=== PATIENT | female | born 1940 | race Caucasian/White ===

== ENCOUNTER 2016-08-27 | Outpatient (CLI) | payer MEDICARE, OTHER | END 2016-08-27 23:59 | disposition short-term general hospital (02) | CPT/HCPCS: A0425; A0427 ==

== ENCOUNTER 2020-11-05 16:34 | Outpatient (CLI) | payer MEDICARE, OTHER | END 2020-11-05 16:35 | disposition critical access hospital (66) | LOC: EMS 16:34 | PROVIDERS: ATTEND Emergency Medicine | DX: R06.02 Shortness of breath (principal) | CPT/HCPCS: A0425; A0429 ==

== ENCOUNTER 2020-11-05 17:11 | Inpatient (IN) | payer MEDICARE, OTHER ==
[2020-11-05] MEDS ORDERED: IPRATROPIUM 0.2 MG/ML NEB INH STA (17:15)
[2020-11-05] MEDS ORDERED: ALBUTEROL NEB 2.5 MG/3 ML INH STA (17:15)
[2020-11-05] MEDS ORDERED: methylPREDNISolone SUCCINATE 125 MG/2 ML VIAL IVP STA (17:15)
--- NOTE | 2020-11-05 17:24 | ED Physician Documentation ---
History of Present Illness - Stated complaint Stated Complaint: SOA - Chief complaint Chief Complaint: Resp - Additonal information Additional information: 79-year-old female presents the emergency department with chief complaint of shortness of breath that she noted this morning upon wakening. She does have a history of nonoxygen dependent COPD. She had used her albuterol MDI at home with little relief thus she called EMS. On presentation for EMS she had saturations of 90 to 94% and was placed on 6 L nasal cannula which increased her oxygen level to 96%. Here on room air her O2 level was 90%. Her oxygen was adjusted to 2 L with a saturation of 95%. Patient is quite tachypneic and labored unable to speak in full sentences. Primary auscultation reveals very poor air flow globally. pt is a former smoker, quit 20 years ago pmh is most significant for htn, COPD and hx of Ao valve replacement (on coumadin) meds: coumadin, lipitor, losartan, metoprolol, advair, albuterol. kumar, Review of Systems Constitutional: denies: Fever, Chills Eyes: reports: Reviewed and negative Ears: reports: Reviewed and negative Nose: reports: Reviewed and negative Throat: reports: Reviewed and negative Cardiac: reports: Pedal edema. denies: Chest pain / pressure, Palpitations, Calf pain Respiratory: reports: Dyspnea, Cough, Wheezing GI: denies: Abdominal Pain, Abdominal Swelling, Nausea, Vomiting : denies: Dysuria, Frequency, Hesitancy Skin: denies: Rash, Lesions Musculoskeletal: denies: Neck pain, Back pain Neurologic: reports: Reviewed and negative Psychiatric: reports: Reviewed and negative PD PAST MEDICAL HISTORY - Present Medications Home Medications: Ambulatory Orders Medication Instructions Recorded Confirmed Albuterol Sulfate [Proair Hfa 1 - 2 puffs INH Q4H PRN 11/05/20 11/05/20 Inhaler] Fluticasone/Salmeterol [Advair Hfa 12 gm IH 11/05/20 230-21 Mcg Inhaler] Latanoprost/Pf [Latanoprost 0.005% 11/05/20 Eye Drop] Metoprolol Tartrate [Lopressor] 11/05/20 Tiotropium Br/Olodaterol HCl 4 gm IH 11/05/20 [Stiolto Respimat Inhal [place]] Warfarin [Coumadin] 5 mg PO 11/05/20 - Allergies Allergies/Adverse Reactions: Allergies Allergy/AdvReac Type Severity Reaction Status Date / Time Penicillins Allergy Hives Verified 11/05/20 17:43 PD ED PE EXPANDED - General General: Alert, In distress (difficulty breathing) - Neck Neck: Supple w/out meningeal sx - Cardiac Cardiac: Tachy, Murmur Present, Radial strong equal, Pedal strong equal, Cap refill < 2 sec - Respiratory Respiratory: Distress, Labored, Other (This decreased breath sounds globally with poor air movement. A few coarse crackles throughout with mild wheeze) - Abdomen Abdomen: Normal Bowel sounds. No: Tender to palpation - Neuro Neuro: Alert and Oriented X 3, CNII-XII intact - GCS Eye Opening: Spontaneous Motor: Obeys Commands Verbal: Oriented Total: 15 Results - Vitals Vitals: Vital Signs - 24 hr 11/05/20 11/05/20 11/05/20 17:15 17:28 17:45 Temperature 36.8 C 37 C Heart Rate 121 H 121 H 125 H Respiratory 22 22 24 Rate Blood Pressure 146/115 H 188/131 H O2 Saturation 97 98 11/05/20 18:15 Temperature Heart Rate 121 H Respiratory 17 Rate Blood Pressure 165/109 H O2 Saturation 99 Oxygen O2 Source Non-rebreather mask Oxygen Flow Rate 2 - EKG (time done) 1724 Rate: Rate (enter#) (121) Rhythm: Sinus tachycardia Intervals: RBBB Ischemia: Non specific changes Compare to prior EKG: Old EKG unavailable - Labs Labs: Laboratory Tests 11/05/20 11/05/20 11/05/20 17:29 17:29 17:29 WBC 11.4 H RBC 4.69 Hgb 14.7 Hct 45.8 MCV 97.7 MCH 31.3 H MCHC 32.1 RDW 14.1 Plt Count 233 MPV 10.0 Neut # (Auto) 8.1 H Lymph # (Auto) 1.9 Winn # (Auto) 1.3 H Eos # (Auto) 0.1 Baso # (Auto) 0.1 Absolute Nucleated RBC 0.00 Nucleated RBC % 0.0 PT INR Sodium 136 Potassium 4.9 Chloride 101 Carbon Dioxide 23 Anion Gap 12.0 BUN 20 Creatinine 1.0 Estimated GFR (MDRD) 53 L Glucose 139 H Calcium 9.9 Total Bilirubin 1.4 H AST 41 ALT 27 Alkaline Phosphatase 97 Troponin I High Sens 23.4 H* B-Natriuretic Peptide Total Protein 7.8 Albumin 4.3 Globulin 3.5 Albumin/Globulin Ratio 1.2 Lipase 34 Nasal Adenovirus (PCR) Nasal B. parapertussis DNA (PCR) Nasal Coronavir 229E PCR Nasal Coronavir HKU1 PCR Nasal Coronavir NL63 PCR Nasal Coronavir OC43 PCR Nasal Enterovir/Rhinovir PCR Nasal Influenza B PCR Nasal Influenza A PCR Nasal Parainfluen 1 PCR Nasal Parainfluen 2 PCR Nasal Parainfluen 3 PCR Nasal Parainfluen 4 PCR Nasal RSV (PCR) Nasal B.pertussis DNA PCR Nasal C.pneumoniae (PCR) [place] Human Metapneumo PCR Nasal M.pneumoniae (PCR) Nasal SARS-CoV-2 (PCR) 11/05/20 11/05/20 11/05/20 17:29 17:29 18:06 WBC RBC Hgb Hct MCV MCH MCHC RDW Plt Count MPV Neut # (Auto) Lymph # (Auto) Winn # (Auto) Eos # (Auto) Baso # (Auto) Absolute Nucleated RBC Nucleated RBC % PT 44.2 H INR 4.4 H Sodium Potassium Chloride Carbon Dioxide Anion Gap BUN Creatinine Estimated GFR (MDRD) Glucose Calcium Total Bilirubin AST ALT Alkaline Phosphatase Troponin I High Sens B-Natriuretic Peptide 280 H Total Protein Albumin Globulin Albumin/Globulin Ratio Lipase Nasal Adenovirus (PCR) NOT DETECTED Nasal B. parapertussis DNA (PCR) NOT DETECTED Nasal Coronavir 229E PCR NOT DETECTED Nasal Coronavir HKU1 PCR NOT DETECTED Nasal Coronavir NL63 PCR NOT DETECTED Nasal Coronavir OC43 PCR NOT DETECTED Nasal Enterovir/Rhinovir PCR NOT DETECTED Nasal Influenza B PCR NOT DETECTED Nasal Influenza A PCR NOT DETECTED Nasal Parainfluen 1 PCR NOT DETECTED Nasal Parainfluen 2 PCR NOT DETECTED Nasal Parainfluen 3 PCR NOT DETECTED Nasal Parainfluen 4 PCR NOT DETECTED Nasal RSV (PCR) NOT DETECTED Nasal B.pertussis DNA PCR NOT DETECTED Nasal C.pneumoniae (PCR) NOT DETECTED [place] Human Metapneumo PCR NOT DETECTED Nasal M.pneumoniae (PCR) NOT DETECTED Nasal SARS-CoV-2 (PCR) NOT DETECTED - Rads (name of study) CXR Radiology: Final report received (Changes redemonstrated in the right lung base with linear right basilar opacities likely relating scarring. No definite acute consolidation.) PD MEDICAL DECISION MAKING - ED course Complexity details: reviewed old records, reviewed results, re-evaluated patient, considered differential, d/w patient ED course: 79-year-old female presents to the emergency department for evaluation of acute onset shortness of breath that began this a.m. She does have a history of COPD. She is a former smoker who quit 20 years ago. She did try her albuterol MDIs at home without relief. For EMS she was hypoxic on presentation with a sat of 90-94. Here on room air patient was noted to be hypoxic when taken off the oxygen therefore she was placed on 2 L nasal cannula. She arrived appearing labored tachypneic and tripoding. She was initially given 2 albuterol nebulizers followed by an Atrovent and then a Xopenex. Following these nebulizers she was moving air much more easily in all her lung watson though she remained labored. She was also given a dose of IV methylprednisolone as well as magnesium sulfate. Chest x-ray did not reveal any acute opacity. COVID-19 screening is negative. Pt was given azithromycin and ceftriaxone in the ED. She will be brought into the hospital for COPD exacerbation. Her VBG does not show significant acidemia or CO2 retention. She is tachycardic with a right bundle branch block on EKG. High-sensitivity troponin is in the low 20s. This likely represents a demand ischemia in the setting of tachycardia and respiratory failure. I have spoken with Dr. Ortega who is agreed to admit the patient for further treatment and evaluation of her acute COPD exacerbation. Departure - Departure Disposition: [facility] DC/Xfer Clinical Impression: COPD exacerbation Respiratory failure Qualifiers: Chronicity: acute Respiratory failure complication: hypoxia Qualified Code(s): J96.01 - Acute respiratory failure with hypoxia
[2020-11-05 17:37] LABS: BASOPHILS # (AUTO) 0.1 10^3/uL (0.0-0.1); BASOPHILS % (AUTO) 0.5 %; EOSINOPHILS # (AUTO) 0.1 10^3/uL (0.0-0.7); EOSINOPHILS % (AUTO) 0.8 %; HCT - HEMATOCRIT 45.8 % (37.0-47.0); HGB - HEMOGLOBIN 14.7 g/dL (12.0-16.0); LYMPHOCYTES # (AUTO) 1.9 10^3/uL (1.5-3.5); LYMPHOCYTES % (AUTO) 16.3 %; MEAN CORPUSCULAR HEMOGLOBIN 31.3 pg (27.0-31.0); MEAN CORPUSCULAR HGB CONC 32.1 g/dL (32.0-36.0); MEAN CORPUSCULAR VOLUME 97.7 fL (81.0-99.0); MONOCYTES # (AUTO) 1.3 10^3/uL (0.0-1.0); MONOCYTES % (AUTO) 11.1 %; NEUTROPHILS # (AUTO) 8.1 10^3/uL (1.5-6.6); PLT - PLATELET COUNT 233 10^3/uL (130-450); RED BLOOD COUNT 4.69 10^6/uL (4.20-5.40); RED CELL DISTRIBUTION WIDTH 14.1 % (12.0-15.0); WHITE BLOOD COUNT 11.4 x10^3/uL (4.8-10.8)
[2020-11-05 17:43] LABS: INR 4.4 (0.8-1.2); PT - PROTHROMBIN TIME 44.2 secs (9.9-12.6)
--- NOTE | 2020-11-05 17:53 | XRAY Report ---
PROCEDURE: Chest 1 View X-Ray INDICATIONS: Chest Pain TECHNIQUE: One view of the chest was acquired. COMPARISON: Chest CT 10/19/2009 FINDINGS: Surgical changes and devices: Post surgical changes are redemonstrated in the mediastinum. There is a lso postsurgical change in the right hemithorax consistent with prior right lower lobe lobectomy. Lungs and pleura: Linear opacities are demonstrated in the right lung base compatible scarring. Ther e is blunting of the costophrenic angle corresponding to pleural thickening seen on the prior CT. No definite acute consolidation. The lung apices are partially obscured by the patient's neck soft tissu es. No definite pneumothorax. Mediastinum: There is slight rightward shift of the mediastinum secondary to volume loss on the righ t. Heart size is normal in technique. Bones and chest wall: No suspicious bony lesions. Overlying soft tissues appear unremarkable. IMPRESSION: 1. Postsurgical changes redemonstrated in the right lung base with linear right basilar opacities lik cony relating scarring. No definite acute consolidation. Reviewed by: Declan Johnson MD on 11/05/2020 5:52 PM PDT Approved by: Declan Johnson MD on 11/05/2020 5:52 PM PDT Station ID: [id number]
[2020-11-05 17:55] LABS: ALBUMIN 4.3 g/dL (3.2-5.5); ALBUMIN/GLOBULIN RATIO 1.2 (1.0-2.2); BILIRUBIN,TOTAL 1.4 mg/dL (0.2-1.0); CALCIUM 9.9 mg/dL (8.5-10.3); POTASSIUM 4.9 mmol/L (3.5-5.0); TOTAL PROTEIN 7.8 g/dL (6.7-8.2)
[2020-11-05] MEDS ORDERED: LEVALBUTEROL 1.25 MG/3 ML NEB INH STA (17:58)
[2020-11-05] MEDS ORDERED: MAGNESIUM SULFATE 2 GRAM 2 GM/50 ML BAG IV ONE (18:22)
[2020-11-05] MEDS ORDERED: cefTRIAXone 1 GM VIAL IVP STA (18:23)
[2020-11-05] MEDS ORDERED: AZITHROMYCIN INJ 500 MG in SODIUM CHLORIDE 0.9% 250 ML IV STA (18:23)
[2020-11-05] MEDS ORDERED: ONDANSETRON ODT 4 MG TABLET TL PRN (18:27)
[2020-11-05] MEDS ORDERED: ACETAMINOPHEN 325 MG TABLET PO PRN (18:27)
[2020-11-05] MEDS ORDERED: SODIUM CHLORIDE FLUSH 0.9% 10 ML SYRINGE IVP PRN (18:27)
[2020-11-05] MEDS ORDERED: ALBUTEROL NEB 2.5 MG/3 ML INH PRN (18:31)
[2020-11-05 19:09] LABS: VBG BASE EXCESS -0.7 mmol/L (-2 - +2); VBG HCO3 24.6 mmol/L (23-28); VBG OXYGEN SATURATION 94.1 % (60-80); VBG PCO2 43.1 mmHg (41-51); VBG PH 7.375 (7.31-7.41); VBG PO2 69.6 mmHg (25-47)
[2020-11-05 19:12] LABS: B. PARAPERTUSSIS- RESP PCR PAN NOT DETECTED; B. PERTUSSIS- RESP PCR PANEL NOT DETECTED; C. PNEUMONIAE- RESP PCR PANEL NOT DETECTED; CORONAVIRUS 229E-RESP PCR NOT DETECTED; CORONAVIRUS HKU1-RESP PCR NOT DETECTED; CORONAVIRUS NL63-RESP PCR NOT DETECTED; CORONAVIRUS OC43-RESP PCR NOT DETECTED; HUMAN METAPNEUMOVIRUS NOT DETECTED; INFLUENZA A- RESP PCR PANEL NOT DETECTED; INFLUENZA B - RESP PCR PANEL NOT DETECTED; M. PNEUMONIAE- RESP PCR PANEL NOT DETECTED; PARAINFLUENZA VIRUS 1 NOT DETECTED; PARAINFLUENZA VIRUS 2 NOT DETECTED; PARAINFLUENZA VIRUS 3 NOT DETECTED; PARAINFLUENZA VIRUS 4 NOT DETECTED; RHINOVIRUS/ENTEROVIRUS NOT DETECTED; RSV- RESP PCR PANEL NOT DETECTED; SARS-CoV-2 -RESP PCR PANEL NOT DETECTED
[2020-11-05] MEDS: IPRATROPIUM/ALBUTEROL 3 ML NEB INH SCH (21:18)
[2020-11-05] MEDS ORDERED: WARFARIN 5 MG TABLET PO ONE (22:24)
[2020-11-05] MEDS: INSULIN ASPART 300 UNIT/3 ML PEN SUBQ SCH (22:59)
[2020-11-05] MEDS: METOPROLOL TARTRATE 50 MG TABLET PO SCH (23:48)
[2020-11-05] MEDS: SODIUM CHLORIDE FLUSH 0.9% 10 ML SYRINGE IVP SCH (23:54)
[2020-11-05] MEDS: LOSARTAN 50 MG TABLET PO SCH (23:54)
--- NOTE | 2020-11-05 23:56 | HISTORY & PHYSICAL EXAMINATION ---
Chief Complaint - Chief Complaint Chief Complaint: shortness of breath History of Present Illness - Admitted From Admitted From:: Home via EMS - History Obtained From Records Reviewed: [facility] History obtained from: Patient Exam Limitations: shortness of breath - History of Present Illness HPI Comment/Other: She is an 79-year-old female has had progressive COPD for the last few years. She started smoking in her teens and was only smoking 1 cigarette a week, and as she got older, had different relationships, gradually increased her smoking. By the time she was 38 she was smoking 1 pack/day and did that until the age of 58. She is not on home oxygen. 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 When he she transitioned to [facility] for life with Medicare primary. As such she had to start seeing Dr. Cooper in [place] until he retired. Then she switched to the physician that took over his practice and she just did not like her style. It was that physician that diagnosed her with "asthma" over a year ago. She then saw Dr. Benigno Domingo in [place]. Dr. Domingo tells her that she has emphysema not asthma. She has been with Dr. Domingo for about a year. In that year she feels like she is just getting worse. Over a year ago she realized that her dyspnea on exertion was starting to limit her to 20 feet. She started taking medications through her [facility] physician for 6 months and did not get better. She then switched to Dr. Domingo and he switched her medications a bit. But she feels like she still not getting any better. Everything really took a turn for the worse when Covid happened. In October 2019 she was still bowling 2 times a week, getting out of the house, being physically active around her 20 acres. When she started having to stay in her home, have no physical activity she feels like everything with regards to dyspnea exertion, orthopnea and wheezing got worse. In July 2019 she fell down some stairs and use using a walker. But by October 2019 she did not need it anymore. She cooked her son corn beef and cabbage for [employer]. Her son did the potatoes and she was able to do everything else. She considers this a minor miracle since the last few months have been unbearable with regards to her ability to do anything. It takes her 2 days to do a load of laundry. It takes her forever to wash the dishes. Her neighbor now goes to the [employer] to do her grocery shopping for her and bring her groceries. Her son takes care of the property but she really cannot handle her housework anymore. Taking a bath is become very difficult. All because of dyspnea on exertion. This morning she woke up just struggling for air. As the day progressed she could not breathe. She knew that she had to wash the dishes because her neighbor was coming over to drop off groceries. The neighbor did that, and by 2 PM the groceries were still there. She denies fever, chills, sore throat, runny nose, eustachian tube dysfunction. She does not feel like anything happened, that there was any antecedent illness, just that today was a progression of the last year. She was 90% saturated on room air in the emergency room. Required 2 L nasal cannula to maintain her O2 sat stable. She was tripoding, struggling to breathe with diffuse wheezing. She received antibiotics, steroids, nebulizers. She was feeling better but still struggling to breathe. Chest x-ray has postsurgical changes redemonstrated in the right lung base with linear right basilar opacities likely related to scarring. No acute infiltrate or consolidation. CMP was normal. Initial troponin was 23. Troponin #2 was 21. BNP was 280. Random glucose 139. White cell count mildly elevated 11.4 without a left shift. Venous blood gas was a pH of 7.37, PCO2 43, PO2 69. Covid negative. INR is 4.4. The emergency room provider has asked us to place her in inpatient status. She thinks that she will be here greater than 2 midnights to stabilize her. History - Past Medical History Cardiovascular: reports: Hypertension, High cholesterol, Valve disorder Respiratory: reports: COPD, Other (lung cancer w RLL resection @ [facility]) Neuro: reports: None Endocrine/Autoimmune: reports: Type 2 diabetes (but she really feels she doesn't have this) GI: reports: None WATERSHED MANAGER: reports: Other () : reports: Kidney stones HEENT: reports: None Psych: reports: None Musculoskeletal: reports: Osteoarthritis Derm: reports: None MRSA Hx?: No - Past Surgical History General: reports: Appendectomy /WATERSHED MANAGER: reports: Tubal ligation, Other (ureterolithotomy) Cardiovascular: reports: Valve replacement (w [facility] Valve @ [facility]) - Family & Social History Family History Comment/Other: Mom at age 82 of complications of Alzheimer's in a half-way. Dad at age 72 of sudden in his chair in his kitchen waiting for his morning oatmeal. 1 brother is alive, 89, completely healthy and lives in [place] is a retired professor. 1 son is bipolar disorder with alcohol abuse Living arrangement: At home Living Situation: With family Social History Notes: She is from [place]. Born and raised in an [facility] neighborhood. First marriage at age 17 ended in divorce 3 years later with one child. 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 She was living in [place] and met her [employer] there. From [place] they moved to [facility] and then all over with his job. They ended up buying 5 acres here on the [place] before he left [facility], and they returned [place] [facility]. He was 11 years younger than her. Unfortunately he of esophageal cancer at the age of 58. She started smoking in her teens. But only smoked 1 or 2 cigarettes here and there. Gradually increased to few a day. By the age of 38 she was smoking a pack per day, and drinking quite a bit. She stopped smoking approximately the age of 58. Before her diagnosis of lung cancer. She does not drink very much anymore. She has no other history of recreational substance abuse. - Substance History Use: Uses substance without health or social issues: NONE Abuse: Recurrent use of substance despite neg consequences: NONE Dependence: Experiences withdrawal or developed tolerances: NONE - POLST Patient has POLST: No POLST Status: DNR Meds/Allgy - Home Medications Home Medications: Ambulatory Orders Medication Instructions Recorded Confirmed Albuterol Sulfate [Proair Hfa 1 - 2 puffs INH Q4H PRN 11/05/20 11/05/20 Inhaler] Fluticasone/Salmeterol [Advair Hfa 12 gm IH 11/05/20 230-21 Mcg Inhaler] Latanoprost/Pf [Latanoprost 0.005% 03/18/21 Eye Drop] Metoprolol Tartrate [Lopressor] 11/05/20 Tiotropium Br/Olodaterol HCl 4 gm IH 11/05/20 [Stiolto Respimat Inhal [place]] Warfarin [Coumadin] 5 mg PO 11/05/20 - Allergies Allergies/Adverse Reactions: Allergies Allergy/AdvReac Type Severity Reaction Status Date / Time Penicillins Allergy Hives Verified 11/05/20 17:43 Review of Systems - Constitutional Constitutional: reports: Fatigue, Weight gain, Other (Constitutional symptoms have been over the last year) - Eyes Eyes: denies: Pain, Blurred vision, Vision loss - Ears, Nose & Throat Ears, Nose & Throat: denies: Ear pain, Hearing loss, Hearing aids, Tinnitus, Nasal pain, Nasal discharge, Sore throat, Hoarseness - Cardiovascular Cariovascular: reports: Irregular heart rate, Exertional dyspnea, Decr. exercise tolerance. denies: Chest pain, Edema, Lightheadedness, Syncope - Respiratory Respiratory: reports: Cough, Wheezing, Orthopnea, SOB at rest, SOB with exertion - Gastrointestinal Gastrointestinal: denies: Abdominal pain, Abdominal distention, Constipation, Diarrhea, Change in bowel habits - Genitourinary Genitourinary: reports: Incontinence. denies: Dysuria, Frequency, Urgency, Flank pain, Nocturia - Musculoskeletal Musculoskeletal: reports: Stiffness, Joint pain. denies: Muscle pain, Back pain, Muscle aches - Integumentary Integumentary: denies: Rash, Pruritis, Lesions, Dryness - Neurological Neurological: reports: General weakness. denies: Focal weakness, Headache, Dizziness, Memory problems - Psychiatric Psychiatric: reports: Depression. denies: Anxiety, Suicidal - Endocrine Endocrine: denies: Polyuria, Polydypsia, Polyphagia - Hematologic/Lymphatic Hematologic/Lymphatic: denies: Anemia, Bruising, Petechiae, Blood clots Prior Level of Functionality: The only time she needed a walker was when she fell down her stairs in July 2019. By October 2019 she no longer needed a walker and was bowling 2 times a week. However over the last year she is increasingly dyspneic, and is needing a lot of help with laundry, housekeeping, does not drive. Son lives in a garage apartment and is homebound because of legal matters. He is looking to be her hired paid caregiver through the state. While he does take care of the 5 acres he has not been taking care of her directly Exam - Vital Signs Reviewed Vital Signs: Yes Vital Signs: Vital Signs x48h Temp Pulse Pulse Resp BP BP Pulse Ox 11/05/20 21:20 117 H 24 11/05/20 20:02 36.5 C 119 H 24 164/77 H 99 11/05/20 18:53 104 H 20 159/74 H 97 11/05/20 18:52 104 H 20 159/74 H 97 11/05/20 18:15 121 H 17 165/109 H 99 11/05/20 17:45 125 H 24 11/05/20 17:28 37 C 121 H 22 188/131 H 98 11/05/20 17:15 36.8 C 121 H 22 146/115 H 97 - Physical Exam General Appearance: positive: Alert, Mild distress, Other (She is a 5 foot tall 85 kg white female with a low hoarse voice. When she starts the history and physical she is spontaneously laughing, comfortable, but as her story progresses and she speaks for over an hour, she is in respiratory distress again) Eyes Bilateral: positive: PERRL, EOMI ENT: positive: No signs of dehydration Neck: positive: No JVD. negative: Stiff neck Respiratory: positive: Wheezes, Rhonchi, Other (Increasing tachypnea over an hour. She starts out the interview laying down flat, and by the end of it she is needing to sit up to 45 degrees) Cardiovascular: positive: Regular rate & rhythm, Irregularly irregular, Tachycardia, Systolic murmur, Other (She alternates between irregularly irregular and irregularly irregular with tachycardia off and on) Peripheral Pulses: positive: 1+ Abdomen: positive: Non-tender, No organomegaly, Nml bowel sounds, No distention Skin: positive: Warm, Dry Extremities: positive: Non-tender, No pedal edema Neurologic/Psychiatric: positive: Oriented x3, CN's nml (2-12), Motor nml Conclusion/Plan - Problem List (1) Acute and chronic respiratory failure with hypoxia Conclusion/Plan: Her history is suggestive of either a pulmonary or cardiac problem that over the course of this last year has gotten progressively worse. Its been subtle but ongoing and she attributes it to the Covid crisis where she has been at home, unable to do any activity at all. She is very repetitive in the memory of being able to bowl 2 times a week a year ago and now she can't even cross 6 feet. There is no antecedent infection with this history. She has a known diagnosis of COPD given to her by her primary care provider in the last year. To her knowledge her valve replacement is still intact and functioning normally. Plan: Inpatient admission greater than 2 midnights Treat for COPD exacerbation as below Check echocardiogram for cardiac status (2) COPD exacerbation Conclusion/Plan: Ex-smoker. Describes minimum of a [id number], possibly [id number]. Deteriorated status due to lack of activity is the cause of deterioration over the last year for her. I tend to agree with her. Plan: Empiric antibiotic therapy was started in the emergency room IV steroids Nebs Respiratory therapy feels that morphine, low-dose, intermittently may help with her respiratory distress, and sense of anxiety. Will give 2 mg IV push to see how she does Strongly recommend cardiopulmonary rehab Is also asking for help at home, and is in the process of getting her son hired as a private duty caregiver. I will have social work sit down to talk to her about what their options are such as transportation access, meal deliveries, etc. (3) Type 2 diabetes mellitus Conclusion/Plan: SHe vociferously protest when I give her this diagnosis. She states that other providers have told her she is a diabetic but she disagrees with him. You only get diabetes "when you eat certain foods". I did go over pathophysiology, and explain insulin receptor pathology, decreased insulin production in the pancreas especially in people who are overweight. She is not buying it. Nevertheless reluctantly agrees to treatment. Plan: Sliding scale insulin A1c in the morning Qualifiers: Diabetes mellitus snf insulin use: without snf use Diabetes mellitus complication status: without complication Qualified Code(s): E11.9 - Type 2 diabetes mellitus without complications (4) Supratherapeutic INR Conclusion/Plan: She takes 5 mg of Coumadin on Monday, Monday, Monday, and Monday. She then takes 2.5 mg on Tuesdays and Fridays. Plan: Hold tonight's Coumadin and resume normal dose of 2.5 mg tomorrow if INR goes below 3 (5) Aortic valve replaced Conclusion/Plan: check echo in am (6) DNR (do not resuscitate) Conclusion/Plan: Please see separate advance care conversation documentation (7) Atrial fib/flutter, transient Conclusion/Plan: When I relocate her EKG from admission, it is read as sinus tachycardia. I am not seeing P waves in all of her QRS complexes and suspect she is in atrial fibrillation. 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 This causes her shortness of breath to return as well as wheezing. I think she may be going in and out of A. fib. Plan: She takes metoprolol 50 twice daily. That will be resumed. Check EKG in the morning Continue anticoagulation with Coumadin held tonight because of supratherapeutic INR 1 dose of diltiazem 10 mg IV push (8) Hypertension Conclusion/Plan: Resume losartan and metoprolol. Currently hypertensive with blood pressure being 1 64-1 79 systolic. Plan: Continue to monitor blood pressure and adjust medications with a goal of less than 140 systolic Qualifiers: Hypertension type: essential hypertension Qualified Code(s): I10 - Essential (primary) hypertension - Lab Results Lab results reviewed: Yes Fish Bones: 11/05/20 17:29 11/05/20 17:29 - Diagnostic Imaging Results Diagnostic Imaging Results: positive: Final report reviewed - EKG Results EKG Interpreted Independently: No EKG Findings: BBB w sinus tachycardia but I think she is in Atrial Fib Core Measures - Anticipated LOS I expect patient to be DC'd or transferred within 96 hours.: Yes - DVT/VTE - Prophylaxis VTE/DVT Device ordered at admit?: Yes
[2020-11-05] MEDS ORDERED: MORPHINE 2 MG/ML CARPUJECT IVP PRN (23:58)
[2020-11-06] MEDS ORDERED: diltiaZEM INJ 5 MG/ML VIAL IVP ONE (00:57)
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
[2020-11-06] MEDS: IPRATROPIUM/ALBUTEROL 3 ML NEB INH SCH ×5 (01:36→19:36)
[2020-11-06 04:54] LABS: BASOPHILS % (AUTO) 0.1 %; HCT - HEMATOCRIT 38.6 % (37.0-47.0); HGB - HEMOGLOBIN 12.7 g/dL (12.0-16.0); LYMPHOCYTES # (AUTO) 1.1 10^3/uL (1.5-3.5); LYMPHOCYTES % (AUTO) 10.6 %; MEAN CORPUSCULAR HEMOGLOBIN 31.7 pg (27.0-31.0); MEAN CORPUSCULAR HGB CONC 32.9 g/dL (32.0-36.0); MEAN CORPUSCULAR VOLUME 96.3 fL (81.0-99.0); MONOCYTES # (AUTO) 0.1 10^3/uL (0.0-1.0); MONOCYTES % (AUTO) 1.3 %; NEUTROPHILS # (AUTO) 9.3 10^3/uL (1.5-6.6); NEUTROPHILS % (AUTO) 87.6 %; PLT - PLATELET COUNT 182 10^3/uL (130-450); RED BLOOD COUNT 4.01 10^6/uL (4.20-5.40); WHITE BLOOD COUNT 10.6 x10^3/uL (4.8-10.8)
[2020-11-06 04:59] LABS: INR 3.9 (0.8-1.2); PT - PROTHROMBIN TIME 40.1 secs (9.9-12.6)
[2020-11-06 05:05] LABS: CALCIUM 8.8 mg/dL (8.5-10.3); CREATININE 1.1 mg/dL (0.4-1.0); MAGNESIUM 2.4 mg/dL (1.7-2.8); POTASSIUM 4.3 mmol/L (3.5-5.0)
--- NOTE | 2020-11-06 08:53 | PHARMACY PROGRESS NOTE ---
- Best Possible Medication History Admit Date and Time: 11/05/20 1827 Processed by: Pharmacy Medication History completed: Yes Secondary Source(s): Physician records, Pharmacy records, Insurance records As the person ultimately responsible for medication therapy, providers are able to order a medication from an existing home medication list in [facility] via the "Reconcile Routine" prior to Confirmation of that medication by patient support assistant. Such practice is discouraged except when the physician, in their clinical judgment, deems that a medical need exists for a medication without regard to previous use.
[2020-11-06] MEDS: INSULIN ASPART 300 UNIT/3 ML PEN SUBQ SCH ×4 (09:07→21:22)
[2020-11-06] MEDS: METOPROLOL TARTRATE 50 MG TABLET PO SCH ×2 (09:08→21:16)
[2020-11-06] MEDS: LOSARTAN 50 MG TABLET PO SCH (09:08)
[2020-11-06] MEDS: methylPREDNISolone SUCCINATE 40 MG/ML VIAL IVP SCH ×2 (09:09→21:19)
[2020-11-06] MEDS: SODIUM CHLORIDE FLUSH 0.9% 10 ML SYRINGE IVP SCH ×2 (09:10→16:58)
[2020-11-06] MEDS: cefTRIAXone 1 GM in SODIUM CHLORIDE 0.9% MINIBAG 100 ML IV SCH (09:11)
[2020-11-06] MEDS ORDERED: INSULIN GLARGINE 300 UNIT/3 ML PEN SUBQ SCH (10:00)
--- NOTE | 2020-11-06 11:17 | PROVIDER PROGRESS NOTE ---
Subjective - Prog Note Date Prog Note Date: 11/06/20 - Subjective Subjective: She reports feeling better today but still feels short of breath. She states she has had difficulty swallowing for a few days now. She does have hoarseness of her voice which she states is chronic since she began to use advair. Denies any dysuria but does report occasional urgency. Current Medications - Current Medications Current Medications: Active Medications Acetaminophen (Acetaminophen 325 Mg Tablet) 650 mg PO Q4HR PRN PRN Reason: Pain 1 to 4 Albuterol (Albuterol Neb 2.5 Mg/3 Ml) 2.5 mg INH RTQ4H PRN PRN Reason: Wheezing Last Admin: 11/06/20 02:45 Dose: 2.5 mg Documented by: Albuterol/Ipratropium (Ipratropium/Albuterol 3 Ml Neb) 3 ml INH Q4HR VANESA Last Admin: 11/06/20 09:50 Dose: 3 ml Documented by: Ceftriaxone Sodium 1 gm/ (Sodium Chloride) 100 mls @ 200 mls/hr IV DAILY [facility] Stop: 11/09/20 09:29 Last Infusion: 11/06/20 10:01 Dose: Infused Documented by: Insulin Aspart (Insulin Aspart 300 Unit/3 Ml Pen) 1 - 9 unit SUBQ 0800,1200,1700,2100 [facility]; Protocol Last Admin: 11/06/20 09:07 Dose: 5 unit Documented by: Insulin Glargine (Insulin Glargine 300 Unit/3 Ml Pen) 10 unit SUBQ DAILY [facility] Last Admin: 11/06/20 09:37 Dose: 10 unit Documented by: Losartan Potassium (Losartan 50 Mg Tablet) 50 mg PO DAILY [facility] Last Admin: 11/06/20 09:08 Dose: 50 mg Documented by: Methylprednisolone (Methylprednisolone Succinate 40 Mg/Ml Vial) 60 mg IVP BID [facility] Last Admin: 11/06/20 09:09 Dose: 60 mg Documented by: Metoprolol Tartrate (Metoprolol Tartrate 50 Mg Tablet) 50 mg PO BID [facility] Last Admin: 11/06/20 09:08 Dose: 50 mg Documented by: Morphine Sulfate (Morphine 2 Mg/Ml Carpuject) 2 mg IVP Q2HR PRN PRN Reason: PAIN Last Admin: 11/06/20 00:48 Dose: 2 mg Documented by: Ondansetron HCl (Ondansetron Odt 4 Mg Tablet) 4 mg TL Q6HR PRN PRN Reason: Nausea / Vomiting Sodium Chloride (Sodium Chloride Flush 0.9% 10 Ml Syringe) 10 ml IVP PRN PRN PRN Reason: NEEDED PER PROVIDER ORDERS Sodium Chloride (Sodium Chloride Flush 0.9% 10 Ml Syringe) 10 ml IVP 0100,0900,1700 VANESA Last Admin: 11/06/20 09:10 Dose: 10 ml Documented by: Albuterol Sulfate [Proair Hfa Inhaler] 1 - 2 puffs INH Q4H PRN 11/05/20 Fluticasone/Salmeterol [Advair Hfa 230-21 Mcg Inhaler] 1 puffs INH BID 11/05/20 Metoprolol Tartrate [Lopressor] 100 mg PO BID 11/05/20 Tiotropium Br/Olodaterol HCl [Stiolto Respimat Inhal [place]] 2 puffs INH BID 11/05/20 Warfarin [Coumadin] 5 mg PO SUMOWETHSA 11/05/20 Atorvastatin Calcium 40 mg PO QPM 11/06/20 Latanoprost 0.005% Ophth Drops [Xalatan Ophth Drops] 1 drops EACHEYE QPM 11/06/20 Losartan Potassium 25 mg PO DAILY 11/06/20 Warfarin [Coumadin] 2.5 mg PO TUFR 11/06/20 Objective - Vital Signs/Intake & Output Reviewed Vital Signs: Yes Vital Signs: Vital Signs x48h Temp Pulse Pulse Resp BP BP Pulse Ox 11/06/20 09:50 120 H 16 11/06/20 09:08 139/65 H 11/06/20 07:43 38.0 C H 94 20 139/65 H 92 11/06/20 05:00 36.6 C 106 H 16 139/91 H 95 Intake & Output: Intake & Output 11/03/20 11/04/20 11/05/20 11/06/20 23:59 23:59 23:59 23:59 Intake Total 637 1060 Output Total 100 250 Balance 537 810 - Objective General Appearance: positive: No acute distress, Alert Eyes Bilateral: positive: Normal inspection, Conjunctivae nml ENT: positive: ENT inspection nml, Other (Nasal cannula in place.) Neck: positive: Nml inspection Respiratory: positive: No respiratory distress, Other (She is still tachypneic but does not appear to be in distress. Has faint expiratory wheezes. Breath sounds diminished in the bases.) Cardiovascular: positive: Irregularly irregular, Tachycardia, Systolic murmur (Mechanical click noted.). negative: Bradycardia Abdomen: positive: Non-tender, No distention. negative: Tenderness Skin: positive: Warm, Dry Extremities: positive: Pedal edema (Trace edema in bilateral lower extremities.) Neurologic/Psychiatric: positive: Motor nml - Lab Results Fish Bones: 11/06/20 04:38 11/06/20 04:38 Other Labs: Lab Results x24hrs 11/06/20 11/06/20 11/06/20 Range/Units 07:41 04:38 04:38 WBC (4.8-10.8) x10^3/uL RBC (4.20-5.40) 10^6/uL Hgb (12.0-16.0) g/dL Hct (37.0-47.0) % MCV (81.0-99.0) fL MCH (27.0-31.0) pg MCHC (32.0-36.0) g/dL RDW (12.0-15.0) % Plt Count (130-450) 10^3/uL MPV (7.9-10.8) fL Neut # (Auto) (1.5-6.6) 10^3/uL Lymph # (Auto) (1.5-3.5) 10^3/uL [place] # (Auto) (0.0-1.0) 10^3/uL Eos # (Auto) (0.0-0.7) 10^3/uL Baso # (Auto) (0.0-0.1) 10^3/uL Absolute Nucleated RBC x10^3/uL Nucleated RBC % /100WBC PT 40.1 H (9.9-12.6) secs INR 3.9 H (0.8-1.2) VBG pH (7.31-7.41) VBG pCO2 (41-51) mmHg VBG pO2 (25-47) mmHg VBG HCO3 (23-28) mmol/L VBG Total CO2 (24-29) mmol/L VBG O2 Saturation (60-80) % VBG Base Excess (-2 - +2) mmol/L Sodium 133 L (135-145) mmol/L Potassium 4.3 (3.5-5.0) mmol/L Chloride 100 L (101-111) mmol/L Carbon Dioxide 22 (21-32) mmol/L Anion Gap 11.0 (6-13) BUN 21 H (6-20) mg/dL Creatinine 1.1 H (0.4-1.0) mg/dL Estimated GFR (MDRD) 48 L (>89) Glucose 246 H (70-100) mg/dL POC Whole Bld Glucose 232 H (70 - 100) mg/dL Calcium 8.8 (8.5-10.3) mg/dL Magnesium 2.4 (1.7-2.8) mg/dL Total Bilirubin (0.2-1.0) mg/dL AST (10-42) IU/L ALT (10-60) IU/L Alkaline Phosphatase (42-121) IU/L Troponin I High Sens (2.3-14.8) ng/L B-Natriuretic Peptide (5-100) pg/mL Total Protein (6.7-8.2) g/dL Albumin (3.2-5.5) g/dL Globulin (2.1-4.2) g/dL Albumin/Globulin Ratio (1.0-2.2) Lipase (22-51) U/L Nasal Adenovirus (PCR) Nasal B. parapertussis DNA (PCR) Nasal Coronavir 229E PCR Nasal Coronavir HKU1 PCR Nasal Coronavir NL63 PCR Nasal Coronavir OC43 PCR Nasal Enterovir/Rhinovir PCR Nasal Influenza B PCR Nasal Influenza A PCR Nasal Parainfluen 1 PCR Nasal Parainfluen 2 PCR Nasal Parainfluen 3 PCR Nasal Parainfluen 4 PCR Nasal RSV (PCR) Nasal B.pertussis DNA PCR Nasal C.pneumoniae (PCR) [place] Human Metapneumo PCR Nasal M.pneumoniae (PCR) Nasal SARS-CoV-2 (PCR) 11/06/20 11/05/20 11/05/20 Range/Units 04:38 22:28 20:25 WBC 10.6 (4.8-10.8) x10^3/uL RBC 4.01 L (4.20-5.40) 10^6/uL Hgb 12.7 (12.0-16.0) g/dL Hct 38.6 (37.0-47.0) % MCV 96.3 (81.0-99.0) fL MCH 31.7 H (27.0-31.0) pg MCHC 32.9 (32.0-36.0) g/dL RDW 14.0 (12.0-15.0) % Plt Count 182 (130-450) 10^3/uL MPV 10.0 (7.9-10.8) fL Neut # (Auto) 9.3 H (1.5-6.6) 10^3/uL Lymph # (Auto) 1.1 L (1.5-3.5) 10^3/uL [place] # (Auto) 0.1 (0.0-1.0) 10^3/uL Eos # (Auto) 0.0 (0.0-0.7) 10^3/uL Baso # (Auto) 0.0 (0.0-0.1) 10^3/uL Absolute Nucleated RBC 0.00 x10^3/uL Nucleated RBC % 0.0 /100WBC PT (9.9-12.6) secs INR (0.8-1.2) VBG pH (7.31-7.41) VBG pCO2 (41-51) mmHg VBG pO2 (25-47) mmHg VBG HCO3 (23-28) mmol/L VBG Total CO2 (24-29) mmol/L VBG O2 Saturation (60-80) % VBG Base Excess (-2 - +2) mmol/L Sodium (135-145) mmol/L Potassium (3.5-5.0) mmol/L Chloride (101-111) mmol/L Carbon Dioxide (21-32) mmol/L Anion Gap (6-13) BUN (6-20) mg/dL Creatinine (0.4-1.0) mg/dL Estimated GFR (MDRD) (>89) Glucose (70-100) mg/dL POC Whole Bld Glucose 289 H (70 - 100) mg/dL Calcium (8.5-10.3) mg/dL Magnesium (1.7-2.8) mg/dL Total Bilirubin (0.2-1.0) mg/dL AST (10-42) IU/L ALT (10-60) IU/L Alkaline Phosphatase (42-121) IU/L Troponin I High Sens 21.1 H* (2.3-14.8) ng/L B-Natriuretic Peptide (5-100) pg/mL Total Protein (6.7-8.2) g/dL Albumin (3.2-5.5) g/dL Globulin (2.1-4.2) g/dL Albumin/Globulin Ratio (1.0-2.2) Lipase (22-51) U/L Nasal Adenovirus (PCR) Nasal B. parapertussis DNA (PCR) Nasal Coronavir 229E PCR Nasal Coronavir HKU1 PCR Nasal Coronavir NL63 PCR Nasal Coronavir OC43 PCR Nasal Enterovir/Rhinovir PCR Nasal Influenza B PCR Nasal Influenza A PCR Nasal Parainfluen 1 PCR Nasal Parainfluen 2 PCR Nasal Parainfluen 3 PCR Nasal Parainfluen 4 PCR Nasal RSV (PCR) Nasal B.pertussis DNA PCR Nasal C.pneumoniae (PCR) [place] Human Metapneumo PCR Nasal M.pneumoniae (PCR) Nasal SARS-CoV-2 (PCR) 11/05/20 11/05/20 11/05/20 Range/Units 18:52 18:06 17:29 WBC (4.8-10.8) x10^3/uL RBC (4.20-5.40) 10^6/uL Hgb (12.0-16.0) g/dL Hct (37.0-47.0) % MCV (81.0-99.0) fL MCH (27.0-31.0) pg MCHC (32.0-36.0) g/dL RDW (12.0-15.0) % Plt Count (130-450) 10^3/uL MPV (7.9-10.8) fL Neut # (Auto) (1.5-6.6) 10^3/uL Lymph # (Auto) (1.5-3.5) 10^3/uL [place] # (Auto) (0.0-1.0) 10^3/uL Eos # (Auto) (0.0-0.7) 10^3/uL Baso # (Auto) (0.0-0.1) 10^3/uL Absolute Nucleated RBC x10^3/uL Nucleated RBC % /100WBC PT 44.2 H (9.9-12.6) secs INR 4.4 H (0.8-1.2) VBG pH 7.375 (7.31-7.41) VBG pCO2 43.1 (41-51) mmHg VBG pO2 69.6 H (25-47) mmHg VBG HCO3 24.6 (23-28) mmol/L VBG Total CO2 26.0 (24-29) mmol/L VBG O2 Saturation 94.1 H (60-80) % VBG Base Excess -0.7 (-2 - +2) mmol/L Sodium (135-145) mmol/L Potassium (3.5-5.0) mmol/L Chloride (101-111) mmol/L Carbon Dioxide (21-32) mmol/L Anion Gap (6-13) BUN (6-20) mg/dL Creatinine (0.4-1.0) mg/dL Estimated GFR (MDRD) (>89) Glucose (70-100) mg/dL POC Whole Bld Glucose (70 - 100) mg/dL Calcium (8.5-10.3) mg/dL Magnesium (1.7-2.8) mg/dL Total Bilirubin (0.2-1.0) mg/dL AST (10-42) IU/L ALT (10-60) IU/L Alkaline Phosphatase (42-121) IU/L Troponin I High Sens (2.3-14.8) ng/L B-Natriuretic Peptide (5-100) pg/mL Total Protein (6.7-8.2) g/dL Albumin (3.2-5.5) g/dL Globulin (2.1-4.2) g/dL Albumin/Globulin Ratio (1.0-2.2) Lipase (22-51) U/L Nasal Adenovirus (PCR) NOT DETECTED Nasal B. parapertussis DNA (PCR) NOT DETECTED Nasal Coronavir 229E PCR NOT DETECTED Nasal Coronavir HKU1 PCR NOT DETECTED Nasal Coronavir NL63 PCR NOT DETECTED Nasal Coronavir OC43 PCR NOT DETECTED Nasal Enterovir/Rhinovir PCR NOT DETECTED Nasal Influenza B PCR NOT DETECTED Nasal Influenza A PCR NOT DETECTED Nasal Parainfluen 1 PCR NOT DETECTED Nasal Parainfluen 2 PCR NOT DETECTED Nasal Parainfluen 3 PCR NOT DETECTED Nasal Parainfluen 4 PCR NOT DETECTED Nasal RSV (PCR) NOT DETECTED Nasal B.pertussis DNA PCR NOT DETECTED Nasal C.pneumoniae (PCR) NOT DETECTED [place] Human Metapneumo PCR NOT DETECTED Nasal M.pneumoniae (PCR) NOT DETECTED Nasal SARS-CoV-2 (PCR) NOT DETECTED 11/05/20 11/05/20 11/05/20 Range/Units 17:29 17:29 17:29 WBC (4.8-10.8) x10^3/uL RBC (4.20-5.40) 10^6/uL Hgb (12.0-16.0) g/dL Hct (37.0-47.0) % MCV (81.0-99.0) fL MCH (27.0-31.0) pg MCHC (32.0-36.0) g/dL RDW (12.0-15.0) % Plt Count (130-450) 10^3/uL MPV (7.9-10.8) fL Neut # (Auto) (1.5-6.6) 10^3/uL Lymph # (Auto) (1.5-3.5) 10^3/uL [place] # (Auto) (0.0-1.0) 10^3/uL Eos # (Auto) (0.0-0.7) 10^3/uL Baso # (Auto) (0.0-0.1) 10^3/uL Absolute Nucleated RBC x10^3/uL Nucleated RBC % /100WBC PT (9.9-12.6) secs INR (0.8-1.2) VBG pH (7.31-7.41) VBG pCO2 (41-51) mmHg VBG pO2 (25-47) mmHg VBG HCO3 (23-28) mmol/L VBG Total CO2 (24-29) mmol/L VBG O2 Saturation (60-80) % VBG Base Excess (-2 - +2) mmol/L Sodium 136 (135-145) mmol/L Potassium 4.9 (3.5-5.0) mmol/L Chloride 101 (101-111) mmol/L Carbon Dioxide 23 (21-32) mmol/L Anion Gap 12.0 (6-13) BUN 20 (6-20) mg/dL Creatinine 1.0 (0.4-1.0) mg/dL Estimated GFR (MDRD) 53 L (>89) Glucose 139 H (70-100) mg/dL POC Whole Bld Glucose (70 - 100) mg/dL Calcium 9.9 (8.5-10.3) mg/dL Magnesium (1.7-2.8) mg/dL Total Bilirubin 1.4 H (0.2-1.0) mg/dL AST 41 (10-42) IU/L ALT 27 (10-60) IU/L Alkaline Phosphatase 97 (42-121) IU/L Troponin I High Sens 23.4 H* (2.3-14.8) ng/L B-Natriuretic Peptide 280 H (5-100) pg/mL Total Protein 7.8 (6.7-8.2) g/dL Albumin 4.3 (3.2-5.5) g/dL Globulin 3.5 (2.1-4.2) g/dL Albumin/Globulin Ratio 1.2 (1.0-2.2) Lipase 34 (22-51) U/L Nasal Adenovirus (PCR) Nasal B. parapertussis DNA (PCR) Nasal Coronavir 229E PCR Nasal Coronavir HKU1 PCR Nasal Coronavir NL63 PCR Nasal Coronavir OC43 PCR Nasal Enterovir/Rhinovir PCR Nasal Influenza B PCR Nasal Influenza A PCR Nasal Parainfluen 1 PCR Nasal Parainfluen 2 PCR Nasal Parainfluen 3 PCR Nasal Parainfluen 4 PCR Nasal RSV (PCR) Nasal B.pertussis DNA PCR Nasal C.pneumoniae (PCR) [place] Human Metapneumo PCR Nasal M.pneumoniae (PCR) Nasal SARS-CoV-2 (PCR) 11/05/20 Range/Units 17:29 WBC 11.4 H (4.8-10.8) x10^3/uL RBC 4.69 (4.20-5.40) 10^6/uL Hgb 14.7 (12.0-16.0) g/dL Hct 45.8 (37.0-47.0) % MCV 97.7 (81.0-99.0) fL MCH 31.3 H (27.0-31.0) pg MCHC 32.1 (32.0-36.0) g/dL RDW 14.1 (12.0-15.0) % Plt Count 233 (130-450) 10^3/uL MPV 10.0 (7.9-10.8) fL Neut # (Auto) 8.1 H (1.5-6.6) 10^3/uL Lymph # (Auto) 1.9 (1.5-3.5) 10^3/uL [place] # (Auto) 1.3 H (0.0-1.0) 10^3/uL Eos # (Auto) 0.1 (0.0-0.7) 10^3/uL Baso # (Auto) 0.1 (0.0-0.1) 10^3/uL Absolute Nucleated RBC 0.00 x10^3/uL Nucleated RBC % 0.0 /100WBC PT (9.9-12.6) secs INR (0.8-1.2) VBG pH (7.31-7.41) VBG pCO2 (41-51) mmHg VBG pO2 (25-47) mmHg VBG HCO3 (23-28) mmol/L VBG Total CO2 (24-29) mmol/L VBG O2 Saturation (60-80) % VBG Base Excess (-2 - +2) mmol/L Sodium (135-145) mmol/L Potassium (3.5-5.0) mmol/L Chloride (101-111) mmol/L Carbon Dioxide (21-32) mmol/L Anion Gap (6-13) BUN (6-20) mg/dL Creatinine (0.4-1.0) mg/dL Estimated GFR (MDRD) (>89) Glucose (70-100) mg/dL POC Whole Bld Glucose (70 - 100) mg/dL Calcium (8.5-10.3) mg/dL Magnesium (1.7-2.8) mg/dL Total Bilirubin (0.2-1.0) mg/dL AST (10-42) IU/L ALT (10-60) IU/L Alkaline Phosphatase (42-121) IU/L Troponin I High Sens (2.3-14.8) ng/L B-Natriuretic Peptide (5-100) pg/mL Total Protein (6.7-8.2) g/dL Albumin (3.2-5.5) g/dL Globulin (2.1-4.2) g/dL Albumin/Globulin Ratio (1.0-2.2) Lipase (22-51) U/L Nasal Adenovirus (PCR) Nasal B. parapertussis DNA (PCR) Nasal Coronavir 229E PCR Nasal Coronavir HKU1 PCR Nasal Coronavir NL63 PCR Nasal Coronavir OC43 PCR Nasal Enterovir/Rhinovir PCR Nasal Influenza B PCR Nasal Influenza A PCR Nasal Parainfluen 1 PCR Nasal Parainfluen 2 PCR Nasal Parainfluen 3 PCR Nasal Parainfluen 4 PCR Nasal RSV (PCR) Nasal B.pertussis DNA PCR Nasal C.pneumoniae (PCR) [place] Human Metapneumo PCR Nasal M.pneumoniae (PCR) Nasal SARS-CoV-2 (PCR) ABX Reporting Has patient been on IV antibiotics over the past 48 hours?: Yes Assessment/Plan - Problem List (1) COPD exacerbation Impression: She is improving but is not back at baseline quite yet. She remains on 1 L of oxygen. She is still dyspneic and tachypneic with faint expiratory wheezes but appears to be in less distress compared to admission. We will continue her on Solu-Medrol 60 mg IV twice daily with today being day 2 of steroids. We will continue her on ceftriaxone IV with today being day 2. Continue with DuoNeb [id number] and albuterol as needed. Continue supplemental oxygen for goal saturation greater than 88%. She will need an exercise desaturation test prior to discharge. (2) Fever Impression: She did have a fever of 38 C this morning. Her rapid PCR is negative for Covid. Her x-ray does not reveal any obvious infiltrate but she is on antibiotics given the COPD exacerbation. She denies any dysuria but reports urgency and so we will check a urinalysis. Will obtain blood cultures although she already received antibiotics last night. Tylenol as needed for fever. Monitor her CBC. (3) History of mechanical aortic valve replacement Impression: She is a history of mechanical aortic valve back in 2003. Her INR was elevated at 4.4 on admission and today it is 3.9. We will continue to hold her Coumadin and check a daily INR. We will resume once her INR is less than 3.5. (4) Chronic atrial fibrillation Impression: She remains tachycardic with rates in the 110s to 120s. This is likely due to her COPD exacerbation. She is already anticoagulated with Coumadin and is on metoprolol at home which has been resumed. Her heart rate should improve as we treat underlying COPD exacerbation. Continue to monitor on telemetry. (5) History of cancer of lower lobe bronchus or lung Impression: She is status post right lower lobe lobectomy in 2007 for lung cancer. Most recent imaging was concerning for new 1 cm left lower lobe nodule. We will look to obtain a CT of the chest once respiratory status improves and she will need outpatient follow-up with her senior staff consultant and primary care physician. (6) Hypertension Impression: Her blood pressure is elevated with systolic in the 130s. Her blood pressure is likely elevated compared to baseline due to use of steroids. We will continue her metoprolol and will consider adding lisinopril if necessary. Qualifiers: Hypertension type: essential hypertension Qualified Code(s): I10 - Essential (primary) hypertension (7) Type 2 diabetes mellitus Impression: She reports a history of diabetes in the past but then told later on that she was no longer diabetic. Her blood glucose was elevated on admission and remains elevated but this may be due to steroids. A1c is pending. We will place her on Lantus 10 units daily along with sliding scale. Carb controlled diet. Qualifiers: Diabetes mellitus tank terminal gauger insulin use: without tank terminal gauger use Diabetes mellitus complication status: without complication Qualified Code(s): E11.9 - Type 2 diabetes mellitus without complications
[2020-11-06 13:11] LABS: ESTIMATED AVERAGE GLUCOSE 151 mg/dL (70-100); HEMOGLOBIN A1c% 6.9 % (4.27-6.07)
[2020-11-06 14:14] LABS: BILIRUBIN,URINE NEGATIVE (NEGATIVE); GLUCOSE, URINE (UA) 100 mg/dL (NEGATIVE); KETONES,URINE (UA) NEGATIVE (NEGATIVE); LEUKOCYTE ESTERASE, URINE NEGATIVE (NEGATIVE); NITRITE,URINE NEGATIVE (NEGATIVE); OCCULT BLOOD,URINE TRACE-INTA (NEGATIVE); PROTEIN,URINE NEGATIVE (NEGATIVE); UROBILINOGEN,URINE 0.2 (NORMAL) E.U./dL (NORMAL)
[2020-11-06 14:24] LABS: BACTERIA,URINE None Seen /HPF (None Seen); CLARITY,URINE CLEAR (CLEAR); RBC,URINE 0-5 /HPF (0-5); SQUAMOUS EPITHELIAL CELL,UR FEW Squamous (<= Few)
[2020-11-07] MEDS: SODIUM CHLORIDE FLUSH 0.9% 10 ML SYRINGE IVP SCH ×5 (00:36→23:56)
[2020-11-07 05:46] LABS: BASOPHILS % (AUTO) 0.1 %; HCT - HEMATOCRIT 39.5 % (37.0-47.0); HGB - HEMOGLOBIN 13.3 g/dL (12.0-16.0); LYMPHOCYTES # (AUTO) 1.1 10^3/uL (1.5-3.5); LYMPHOCYTES % (AUTO) 5.4 %; MEAN CORPUSCULAR HEMOGLOBIN 32.4 pg (27.0-31.0); MEAN CORPUSCULAR HGB CONC 33.7 g/dL (32.0-36.0); MEAN CORPUSCULAR VOLUME 96.1 fL (81.0-99.0); MEAN PLATELET VOLUME 10.3 fL (7.9-10.8); MONOCYTES # (AUTO) 0.6 10^3/uL (0.0-1.0); MONOCYTES % (AUTO) 3.1 %; NEUTROPHILS # (AUTO) 18.2 10^3/uL (1.5-6.6); NEUTROPHILS % (AUTO) 90.7 %; PLT - PLATELET COUNT 203 10^3/uL (130-450); RED BLOOD COUNT 4.11 10^6/uL (4.20-5.40); RED CELL DISTRIBUTION WIDTH 14.1 % (12.0-15.0); WHITE BLOOD COUNT 20.1 x10^3/uL (4.8-10.8)
[2020-11-07 05:53] LABS: CALCIUM 9.2 mg/dL (8.5-10.3); MAGNESIUM 2.4 mg/dL (1.7-2.8); POTASSIUM 4.5 mmol/L (3.5-5.0)
[2020-11-07] MEDS: IPRATROPIUM/ALBUTEROL 3 ML NEB INH SCH ×6 (06:37→20:12)
[2020-11-07] MEDS: INSULIN GLARGINE 300 UNIT/3 ML PEN SUBQ SCH (08:26)
[2020-11-07] MEDS: INSULIN ASPART 300 UNIT/3 ML PEN SUBQ SCH ×5 (08:26→20:52)
--- NOTE | 2020-11-07 08:37 | PROVIDER PROGRESS NOTE ---
Subjective - Prog Note Date Prog Note Date: 11/07/20 - Subjective Subjective: She reports feeling much better today. Her dyspnea significantly improved but she still does have a nonproductive cough. She was able to ambulate a little bit yesterday and looking forward to ambulating and showering today. She feels like she is ready to go home soon. Current Medications - Current Medications Current Medications: Active Medications Acetaminophen (Acetaminophen 325 Mg Tablet) 650 mg PO Q4HR PRN PRN Reason: Pain 1 to 4 Albuterol (Albuterol Neb 2.5 Mg/3 Ml) 2.5 mg INH RTQ4H PRN PRN Reason: Wheezing Last Admin: 11/06/20 02:45 Dose: 2.5 mg Documented by: Albuterol/Ipratropium (Ipratropium/Albuterol 3 Ml Neb) 3 ml INH Q4HR VANESA Last Admin: 11/07/20 07:15 Dose: 3 ml Documented by: Atorvastatin Calcium (Atorvastatin 40 Mg Tablet) 40 mg PO QPM [facility] Ceftriaxone Sodium 1 gm/ (Sodium Chloride) 100 mls @ 200 mls/hr IV DAILY VANESA Stop: 11/09/20 09:29 Last Infusion: 11/06/20 10:01 Dose: Infused Documented by: Insulin Aspart (Insulin Aspart 300 Unit/3 Ml Pen) 1 - 9 unit SUBQ 0800,1200,1700,2100 [facility]; Protocol Last Admin: 11/07/20 08:26 Dose: 3 unit Documented by: Insulin Glargine (Insulin Glargine 300 Unit/3 Ml Pen) 20 unit SUBQ DAILY [facility] Last Admin: 11/07/20 08:26 Dose: 20 unit Documented by: Latanoprost (Latanoprost 0.005% Ophth Drops) 1 drops EACHEYE QPM [facility] Losartan Potassium (Losartan 50 Mg Tablet) 25 mg PO DAILY [facility] Metoprolol Tartrate (Metoprolol Tartrate 50 Mg Tablet) 100 mg PO BID [facility] Morphine Sulfate (Morphine 2 Mg/Ml Carpuject) 2 mg IVP Q2HR PRN PRN Reason: PAIN Last Admin: 11/06/20 00:48 Dose: 2 mg Documented by: Ondansetron HCl (Ondansetron Odt 4 Mg Tablet) 4 mg TL Q6HR PRN PRN Reason: Nausea / Vomiting Prednisone (Prednisone 20 Mg Tablet) 40 mg PO DAILYWM [facility] Stop: 11/10/20 07:59 Sodium Chloride (Sodium Chloride Flush 0.9% 10 Ml Syringe) 10 ml IVP PRN PRN PRN Reason: NEEDED PER PROVIDER ORDERS Sodium Chloride (Sodium Chloride Flush 0.9% 10 Ml Syringe) 10 ml IVP 0100,0900,1700 [facility] Last Admin: 11/07/20 00:36 Dose: 10 ml Documented by: Warfarin Sodium (Warfarin 2.5 Mg Tablet) 2.5 mg PO [facility] Warfarin Sodium (Warfarin 5 Mg Tablet) 5 mg PO WE [facility] Albuterol Sulfate [Proair Hfa Inhaler] 1 - 2 puffs INH Q4H PRN 11/05/20 Fluticasone/Salmeterol [Advair Hfa 230-21 Mcg Inhaler] 1 puffs INH BID 11/05/20 Metoprolol Tartrate [Lopressor] 100 mg PO BID 11/05/20 Tiotropium Br/Olodaterol HCl [Stiolto Respimat Inhal Brave] 2 puffs INH BID 11/05/20 Warfarin [Coumadin] 5 mg PO [place] 11/05/20 Atorvastatin Calcium 40 mg PO QPM 11/06/20 Latanoprost 0.005% Ophth Drops [Xalatan Ophth Drops] 1 drops EACHEYE QPM 11/06/20 Losartan Potassium 25 mg PO DAILY 11/06/20 Warfarin [Coumadin] 2.5 mg PO TUFR 11/06/20 Objective - Vital Signs/Intake & Output Reviewed Vital Signs: Yes Vital Signs: Vital Signs x48h Temp Pulse Pulse Resp BP Pulse Ox 11/07/20 07:16 120 H 20 11/07/20 05:39 36.7 C 123 H 20 95 11/07/20 05:00 37.1 C 123 H 20 151/89 H 95 Intake & Output: Intake & Output 11/04/20 11/05/20 11/06/20 11/07/20 23:59 23:59 23:59 23:59 Intake Total 637 1730 Output Total 100 1425 600 Balance 537 305 600 - Objective General Appearance: positive: No acute distress, Alert Eyes Bilateral: positive: Normal inspection, Conjunctivae nml ENT: positive: ENT inspection nml Neck: positive: Nml inspection Respiratory: positive: No respiratory distress, Wheezes, Other (She is still slightly tachypneic. Faint expiratory wheezes. She is moving much more air today.). negative: Rales, Rhonchi Cardiovascular: positive: Tachycardia, Systolic murmur (Mechanical click noted.). negative: Irregularly irregular, Bradycardia Skin: positive: Warm, Dry Extremities: positive: Pedal edema (Trace edema in bilateral lower extremities) Neurologic/Psychiatric: negative: Disoriented to person, Disoriented to place - Lab Results Fish Bones: 11/07/20 05:27 11/07/20 05:27 Other Labs: Lab Results x24hrs 11/07/20 11/07/20 11/07/20 Range/Units 08:04 05:27 05:27 WBC (4.8-10.8) x10^3/uL RBC (4.20-5.40) 10^6/uL Hgb (12.0-16.0) g/dL Hct (37.0-47.0) % MCV (81.0-99.0) fL MCH (27.0-31.0) pg MCHC (32.0-36.0) g/dL RDW (12.0-15.0) % Plt Count (130-450) 10^3/uL MPV (7.9-10.8) fL Neut # (Auto) (1.5-6.6) 10^3/uL Lymph # (Auto) (1.5-3.5) 10^3/uL [place] # (Auto) (0.0-1.0) 10^3/uL Eos # (Auto) (0.0-0.7) 10^3/uL Baso # (Auto) (0.0-0.1) 10^3/uL Absolute Nucleated RBC x10^3/uL Nucleated RBC % /100WBC PT 31.0 H (9.9-12.6) secs INR 3.0 H (0.8-1.2) Sodium 135 (135-145) mmol/L Potassium 4.5 (3.5-5.0) mmol/L Chloride 101 (101-111) mmol/L Carbon Dioxide 23 (21-32) mmol/L Anion Gap 11.0 (6-13) BUN 25 H (6-20) mg/dL Creatinine 1.0 (0.4-1.0) mg/dL Estimated GFR (MDRD) 53 L (>89) Glucose 218 H (70-100) mg/dL POC Whole Bld Glucose 208 H (70 - 100) mg/dL Estimat Average Glucose (70-100) mg/dL Hemoglobin A1c % (4.27-6.07) % Calcium 9.2 (8.5-10.3) mg/dL Magnesium 2.4 (1.7-2.8) mg/dL Urine Color Urine Clarity (CLEAR) Urine pH (5.0-7.5) PH Ur Specific [place] (1.002-1.030) Urine Protein (NEGATIVE) mg/dL Urine Glucose (UA) (NEGATIVE) mg/dL Urine Ketones (NEGATIVE) mg/dL Urine Occult Blood (NEGATIVE) Urine Nitrite (NEGATIVE) Urine Bilirubin (NEGATIVE) Urine Urobilinogen (NORMAL) E.U./dL Ur Leukocyte Esterase (NEGATIVE) Urine RBC (0-5) /HPF Urine WBC (0-5) /HPF Ur Squamous Epith Cells (<= Few) Urine Bacteria (None Seen) /HPF Urine Culture Comments 11/07/20 11/06/20 11/06/20 Range/Units 05:27 20:55 16:33 WBC 20.1 H (4.8-10.8) x10^3/uL RBC 4.11 L (4.20-5.40) 10^6/uL Hgb 13.3 (12.0-16.0) g/dL Hct 39.5 (37.0-47.0) % MCV 96.1 (81.0-99.0) fL MCH 32.4 H (27.0-31.0) pg MCHC 33.7 (32.0-36.0) g/dL RDW 14.1 (12.0-15.0) % Plt Count 203 (130-450) 10^3/uL MPV 10.3 (7.9-10.8) fL Neut # (Auto) 18.2 H (1.5-6.6) 10^3/uL Lymph # (Auto) 1.1 L (1.5-3.5) 10^3/uL [place] # (Auto) 0.6 (0.0-1.0) 10^3/uL Eos # (Auto) 0.0 (0.0-0.7) 10^3/uL Baso # (Auto) 0.0 (0.0-0.1) 10^3/uL Absolute Nucleated RBC 0.00 x10^3/uL Nucleated RBC % 0.0 /100WBC PT (9.9-12.6) secs INR (0.8-1.2) Sodium (135-145) mmol/L Potassium (3.5-5.0) mmol/L Chloride (101-111) mmol/L Carbon Dioxide (21-32) mmol/L Anion Gap (6-13) BUN (6-20) mg/dL Creatinine (0.4-1.0) mg/dL Estimated GFR (MDRD) (>89) Glucose (70-100) mg/dL POC Whole Bld Glucose 261 H 250 H (70 - 100) mg/dL Estimat Average Glucose (70-100) mg/dL Hemoglobin A1c % (4.27-6.07) % Calcium (8.5-10.3) mg/dL Magnesium (1.7-2.8) mg/dL Urine Color Urine Clarity (CLEAR) Urine pH (5.0-7.5) PH Ur Specific [place] (1.002-1.030) Urine Protein (NEGATIVE) mg/dL Urine Glucose (UA) (NEGATIVE) mg/dL Urine Ketones (NEGATIVE) mg/dL Urine Occult Blood (NEGATIVE) Urine Nitrite (NEGATIVE) Urine Bilirubin (NEGATIVE) Urine Urobilinogen (NORMAL) E.U./dL Ur Leukocyte Esterase (NEGATIVE) Urine RBC (0-5) /HPF Urine WBC (0-5) /HPF Ur Squamous Epith Cells (<= Few) Urine Bacteria (None Seen) /HPF Urine Culture Comments 11/06/20 11/06/20 11/06/20 Range/Units 13:55 11:25 04:38 WBC (4.8-10.8) x10^3/uL RBC (4.20-5.40) 10^6/uL Hgb (12.0-16.0) g/dL Hct (37.0-47.0) % MCV (81.0-99.0) fL MCH (27.0-31.0) pg MCHC (32.0-36.0) g/dL RDW (12.0-15.0) % Plt Count (130-450) 10^3/uL MPV (7.9-10.8) fL Neut # (Auto) (1.5-6.6) 10^3/uL Lymph # (Auto) (1.5-3.5) 10^3/uL [place] # (Auto) (0.0-1.0) 10^3/uL Eos # (Auto) (0.0-0.7) 10^3/uL Baso # (Auto) (0.0-0.1) 10^3/uL Absolute Nucleated RBC x10^3/uL Nucleated RBC % /100WBC PT (9.9-12.6) secs INR (0.8-1.2) Sodium (135-145) mmol/L Potassium (3.5-5.0) mmol/L Chloride (101-111) mmol/L Carbon Dioxide (21-32) mmol/L Anion Gap (6-13) BUN (6-20) mg/dL Creatinine (0.4-1.0) mg/dL Estimated GFR (MDRD) (>89) Glucose (70-100) mg/dL POC Whole Bld Glucose 263 H (70 - 100) mg/dL Estimat Average Glucose 151 H (70-100) mg/dL Hemoglobin A1c % 6.9 H (4.27-6.07) % Calcium (8.5-10.3) mg/dL Magnesium (1.7-2.8) mg/dL Urine Color YELLOW Urine Clarity CLEAR (CLEAR) Urine pH 6.0 (5.0-7.5) PH Ur Specific [place] 1.015 (1.002-1.030) Urine Protein NEGATIVE (NEGATIVE) mg/dL Urine Glucose (UA) 100 H (NEGATIVE) mg/dL Urine Ketones NEGATIVE (NEGATIVE) mg/dL Urine Occult Blood [place] (NEGATIVE) Urine Nitrite NEGATIVE (NEGATIVE) Urine Bilirubin NEGATIVE (NEGATIVE) Urine Urobilinogen 0.2 (NORMAL) (NORMAL) E.U./dL Ur Leukocyte Esterase NEGATIVE (NEGATIVE) Urine RBC 0-5 (0-5) /HPF Urine WBC 4-5 (0-5) /HPF Ur Squamous Epith Cells FEW Squamous (<= Few) Urine Bacteria None Seen (None Seen) /HPF Urine Culture Comments NOT INDICATED ABX Reporting Has patient been on IV antibiotics over the past 48 hours?: Yes Assessment/Plan - Problem List (1) COPD exacerbation Impression: She continues to improve on a daily basis. She is now off of oxygen and although she still slightly tachypneic, she is not in distress and is moving much more air. Still has faint expiratory wheezes. We will switch her to oral prednisone today. Continue with duo nebs albuterol. We will continue with ceftriaxone IV while she is hospitalized and transition to oral antibiotics on discharge to complete 5 days of therapy. She will need an exercise desaturation test tomorrow prior to discharge. We will look to discharge her tomorrow as I suspect she will be ready then from a respiratory standpoint. She does not have a nebulizer at home and I will write a prescription for this. (2) Fever Impression: She had a fever of 38 degrees yesterday morning but has been afebrile since. Her chest x-ray did not reveal any obvious infiltrate and her urinalysis was unremarkable. Although there is no obvious bacterial infection, we will keep her on ceftriaxone while she is hospitalized due to her COPD exacerbation and will discharge her on oral antibiotics to complete 5 days of therapy. We will continue to follow-up her blood cultures. Her white count is elevated today but suspect this is likely due to steroids and we will recheck in the morning. (3) Chronic atrial fibrillation Impression: Her heart rate remains elevated in the 110s to 120s. This is likely exacerbated by her COPD exacerbation as well as the use of beta agonists. She had only been receiving metoprolol 50 mg twice daily and she is on 100 mg twice daily which can also be playing a role. We have increased her metoprolol to her home dosing of this morning. We will continue with the nebulizers given her COPD exacerbation but will consider Xopenex if she remains tachycardic. We will also consider adding digoxin or diltiazem if necessary. We will continue to monitor on telemetry. (4) Leukocytosis Impression: Her white count is elevated this morning at 20,000 with a left shift. She did have a fever of 38 C yesterday. Imaging does not suggest an obvious infiltrate and her urinalysis is unremarkable. Blood cultures are pending. I suspect this is likely related to the use of steroids but given the fever yesterday, we will keep her on antibiotics for COPD exacerbation and continue to trend her CBC. (5) History of mechanical aortic valve replacement Impression: This was in 2003. This appears to be well functioning based off recent echocardiogram. We will resume her Coumadin today as her INR is 3. (6) Type 2 diabetes mellitus Impression: Her A1C is 6.9%. Her blood glucose has been elevated with blood sugars in the 200s during this hospitalization. I have increased her Lantus to 20 units in the morning and will continue with sliding scale and carb controlled diet. I did discuss the use of Metformin on discharge but she declines this. She prefers to hold off on any therapies for her diabetes and will attempt to control this with diet. She will follow-up with her primary care provider as well as a tobacco prevention health educator. I have asked her to at least check her blood glucose at home and she is agreeable to this. 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 This has been an issue in the past and this was reportedly related to vocal cord nodules. We did discuss potential option for endoscopy but given her recent COPD exacerbation, would prefer to hold off on nonemergent scopes at this time and she also prefers this. She has been tolerating soft mechanical diet without obvious aspiration. We did attempt to have a swallow evaluation yesterday but unfortunately speech therapy was not available and they are not here over the weekend. I have recommended outpatient follow-up with a primary care provider and she is agreeable to this. (8) History of cancer of lower lobe bronchus or lung Impression: She is status post right lower lobectomy in 2007 for lung cancer. She had imaging performed last year which was concerning for a new 1 cm left lower lobe nodule. We will look to repeat this imaging while she is here in the hospital or have her follow-up on an outpatient basis for a CT. (9) Hypertension Impression: Her blood pressure has been elevated with systolic in the 140s to 150s. This is likely exacerbated by the use of steroids. We have increased her metoprolol to 100 mg twice daily and will continue with the current dose of losartan 50 mg d aily. Qualifiers: Hypertension type: essential hypertension Qualified Code(s): I10 - Essential (primary) hypertension
[2020-11-07] MEDS ORDERED: LOSARTAN 50 MG TABLET PO SCH (09:00)
[2020-11-07] MEDS: predniSONE 20 MG TABLET PO SCH (09:52)
[2020-11-07] MEDS: METOPROLOL TARTRATE 50 MG TABLET PO SCH ×2 (09:52→20:53)
[2020-11-07] MEDS: LOSARTAN 50 MG TABLET PO SCH (09:52)
[2020-11-07] MEDS: cefTRIAXone 1 GM in SODIUM CHLORIDE 0.9% MINIBAG 100 ML IV SCH (09:53)
[2020-11-07] MEDS: WARFARIN 5 MG TABLET PO SCH (14:42)
[2020-11-07] MEDS ORDERED: diltiaZEM INJ 5 MG/ML VIAL IVP ONE (19:09)
[2020-11-07] MEDS: ATORVASTATIN 40 MG TABLET PO SCH (20:54)
[2020-11-07] MEDS: LATANOPROST 0.005% OPHTH DROPS EACHEYE SCH (20:54)
[2020-11-08 05:55] LABS: BASOPHILS % (AUTO) 0.1 %; HCT - HEMATOCRIT 40.6 % (37.0-47.0); HGB - HEMOGLOBIN 13.6 g/dL (12.0-16.0); LYMPHOCYTES # (AUTO) 1.4 10^3/uL (1.5-3.5); LYMPHOCYTES % (AUTO) 7.1 %; MEAN CORPUSCULAR HGB CONC 33.5 g/dL (32.0-36.0); MEAN CORPUSCULAR VOLUME 95.5 fL (81.0-99.0); MEAN PLATELET VOLUME 9.8 fL (7.9-10.8); MONOCYTES # (AUTO) 1.3 10^3/uL (0.0-1.0); MONOCYTES % (AUTO) 6.4 %; NEUTROPHILS # (AUTO) 17.4 10^3/uL (1.5-6.6); NEUTROPHILS % (AUTO) 85.8 %; PLT - PLATELET COUNT 211 10^3/uL (130-450); RED BLOOD COUNT 4.25 10^6/uL (4.20-5.40); RED CELL DISTRIBUTION WIDTH 14.2 % (12.0-15.0); WHITE BLOOD COUNT 20.2 x10^3/uL (4.8-10.8)
[2020-11-08 05:59] LABS: INR 2.7 (0.8-1.2); PT - PROTHROMBIN TIME 28.3 secs (9.9-12.6)
[2020-11-08 06:02] LABS: CALCIUM 9.3 mg/dL (8.5-10.3); CREATININE 1.1 mg/dL (0.4-1.0); MAGNESIUM 2.4 mg/dL (1.7-2.8); POTASSIUM 4.4 mmol/L (3.5-5.0)
[2020-11-08] MEDS: polyethylene glycoL 3350 17 GM PACKET PO SCH (07:46)
[2020-11-08] MEDS ORDERED: diltiaZEM 30 MG TABLET PO SCH ×2 (08:00→12:00)
[2020-11-08] MEDS ORDERED: diltiaZEM INJ 5 MG/ML VIAL IVP ONE (09:24)
[2020-11-08] MEDS: IPRATROPIUM/ALBUTEROL 3 ML NEB INH SCH (09:52)
[2020-11-08] MEDS: INSULIN ASPART 300 UNIT/3 ML PEN SUBQ SCH ×4 (10:05→21:20)
[2020-11-08] MEDS: predniSONE 20 MG TABLET PO SCH (10:17)
[2020-11-08] MEDS: METOPROLOL TARTRATE 50 MG TABLET PO SCH ×2 (10:17→21:17)
[2020-11-08] MEDS: SODIUM CHLORIDE FLUSH 0.9% 10 ML SYRINGE IVP SCH ×2 (10:18→16:54)
[2020-11-08] MEDS: LOSARTAN 50 MG TABLET PO SCH (10:18)
[2020-11-08] MEDS: cefTRIAXone 1 GM in SODIUM CHLORIDE 0.9% MINIBAG 100 ML IV SCH (10:19)
[2020-11-08] MEDS ORDERED: LEVALBUTEROL 1.25 MG/3 ML NEB INH PRN (10:21)
[2020-11-08] MEDS: INSULIN GLARGINE 300 UNIT/3 ML PEN SUBQ SCH (10:25)
--- NOTE | 2020-11-08 11:58 | PROVIDER PROGRESS NOTE ---
Subjective - Prog Note Date Prog Note Date: 11/08/20 - Subjective Subjective: She continues to feel better on a daily basis from a respiratory standpoint. She was able to ambulate in the hallways yesterday with minimal dyspnea. She does continue to have a nonproductive cough. She reports occasional palpitations but denies chest pain. She is looking forward to going home as s oon as possible. Current Medications - Current Medications Current Medications: Active Medications Acetaminophen (Acetaminophen 325 Mg Tablet) 650 mg PO Q4HR PRN PRN Reason: Pain 1 to 4 Atorvastatin Calcium (Atorvastatin 40 Mg Tablet) 40 mg PO QPM [facility] Last Admin: 11/07/20 20:54 Dose: 40 mg Documented by: Budesonide (Budesonide 0.5 Mg/2 Ml Neb) 0.5 mg INH RTBID VANESA Diltiazem HCl (Diltiazem 30 Mg Tablet) 30 mg PO Q6HR VANESA Formoterol Fumarate (Formoterol Fumarate Neb 20 Mcg/2 Ml) 20 mcg INH RTBID VANESA Ceftriaxone Sodium 1 gm/ (Sodium Chloride) 100 mls @ 200 mls/hr IV DAILY [facility] Stop: 11/09/20 09:29 Last Infusion: 11/08/20 11:37 Dose: Infused Documented by: Insulin Aspart (Insulin Aspart 300 Unit/3 Ml Pen) 2 - 10 unit SUBQ 0800,1200,1700,2100 [facility]; Protocol Last Admin: 11/08/20 10:05 Dose: Not Given Documented by: Insulin Glargine (Insulin Glargine 300 Unit/3 Ml Pen) 20 unit SUBQ DAILY [facility] Last Admin: 11/08/20 10:25 Dose: 20 unit Documented by: Latanoprost (Latanoprost 0.005% Ophth Drops) 1 drops EACHEYE QPM [facility] Last Admin: 11/07/20 20:54 Dose: 1 drops Documented by: Levalbuterol HCl (Levalbuterol 1.25 Mg/3 Ml Neb) 1.25 mg INH Q4H PRN PRN Reason: Shortness of Air/Wheezing Losartan Potassium (Losartan 50 Mg Tablet) 50 mg PO DAILY [facility] Last Admin: 11/08/20 10:18 Dose: 50 mg Documented by: Metoprolol Tartrate (Metoprolol Tartrate 50 Mg Tablet) 100 mg PO BID [facility] Last Admin: 11/08/20 10:17 Dose: 100 mg Documented by: Morphine Sulfate (Morphine 2 Mg/Ml Carpuject) 2 mg IVP Q2HR PRN PRN Reason: PAIN Last Admin: 11/06/20 00:48 Dose: 2 mg Documented by: Ondansetron HCl (Ondansetron Odt 4 Mg Tablet) 4 mg TL Q6HR PRN PRN Reason: Nausea / Vomiting Polyethylene Glycol (Polyethylene Glycol 3350 17 Gm Packet) 17 gm PO DAILY [facility] Last Admin: 11/08/20 07:46 Dose: Not Given Documented by: Prednisone (Prednisone 20 Mg Tablet) [facility] [place] Stop: 11/10/20 07:59 Last Admin: 11/08/20 10:17 Dose: 40 mg Documented by: Sodium Chloride (Sodium Chloride Flush 0.9% 10 Ml Syringe) 10 ml IVP PRN PRN PRN Reason: NEEDED PER PROVIDER ORDERS Sodium Chloride (Sodium Chloride Flush 0.9% 10 Ml Syringe) 10 ml IVP 0100,0900,1700 [facility] Last Admin: 11/08/20 10:18 Dose: 10 ml Documented by: Warfarin Sodium (Warfarin 2.5 Mg Tablet) 2.5 mg PO [facility] Warfarin Sodium (Warfarin 5 Mg Tablet) 5 mg PO WE [facility] Last Admin: 11/07/20 14:42 Dose: 5 mg Documented by: Albuterol Sulfate [Proair Hfa Inhaler] 1 - 2 puffs INH Q4H PRN 11/05/20 Fluticasone/Salmeterol [Advair Hfa 230-21 Mcg Inhaler] 1 puffs INH BID 11/05/20 Metoprolol Tartrate [Lopressor] 100 mg PO BID 11/05/20 Tiotropium Br/Olodaterol HCl [Stiolto Respimat Inhal [place]] 2 puffs INH BID 11/05/20 Warfarin [Coumadin] 5 mg PO [place] 11/05/20 Atorvastatin Calcium 40 mg PO QPM 11/06/20 Latanoprost 0.005% Ophth Drops [Xalatan Ophth Drops] 1 drops EACHEYE QPM 10/19 05/11 Losartan Potassium 25 mg PO DAILY 11/06/20 Warfarin [Coumadin] 2.5 mg PO TUFR 11/06/20 Objective - Vital Signs/Intake & Output Reviewed Vital Signs: Yes Vital Signs: Vital Signs x48h Temp Pulse Resp BP BP Pulse Ox 11/08/20 11:05 36.6 C 109 H 18 139/97 H 96 11/08/20 10:18 124/99 H 11/08/20 10:17 124/99 H 11/08/20 07:25 36.7 C 128 H 18 169/86 H 96 11/08/20 05:00 36.5 C 127 H 20 145/87 H 95 Intake & Output: Intake & Output 11/05/20 11/06/20 11/07/20 11/08/20 23:59 23:59 23:59 23:59 Intake Total 637 1730 1370 1052 Output Total 100 6789 282 1748 Balance 537 305 620 -648 - Objective General Appearance: positive: No acute distress, Alert Eyes Bilateral: positive: Normal inspection, Conjunctivae nml ENT: positive: ENT inspection nml Neck: positive: Nml inspection Respiratory: positive: No respiratory distress. negative: Wheezes, Rales Cardiovascular: positive: Irregularly irregular, Tachycardia, Systolic murmur (Mechanical click noted.) Skin: positive: Warm, Dry Extremities: positive: Pedal edema (+1 pitting edema in the bilateral lower extremities.) Neurologic/Psychiatric: negative: Disoriented to person, Disoriented to place - Lab Results Fish Bones: 11/08/20 05:44 11/08/20 05:44 Other Labs: Lab Results x24hrs 11/08/20 11/08/20 11/08/20 Range/Units 11:08 07:25 05:44 WBC (4.8-10.8) x10^3/uL RBC (4.20-5.40) 10^6/uL Hgb (12.0-16.0) g/dL Hct (37.0-47.0) % MCV (81.0-99.0) fL MCH (27.0-31.0) pg MCHC (32.0-36.0) g/dL RDW (12.0-15.0) % Plt Count (130-450) 10^3/uL MPV (7.9-10.8) fL Neut # (Auto) (1.5-6.6) 10^3/uL Lymph # (Auto) (1.5-3.5) 10^3/uL [place] # (Auto) (0.0-1.0) 10^3/uL Eos # (Auto) (0.0-0.7) 10^3/uL Baso # (Auto) (0.0-0.1) 10^3/uL Absolute Nucleated RBC x10^3/uL Nucleated RBC % /100WBC PT 28.3 H (9.9-12.6) secs INR 2.7 H (0.8-1.2) Sodium (135-145) mmol/L Potassium (3.5-5.0) mmol/L Chloride (101-111) mmol/L Carbon Dioxide (21-32) mmol/L Anion Gap (6-13) BUN (6-20) mg/dL Creatinine (0.4-1.0) mg/dL Estimated GFR (MDRD) (>89) Glucose (70-100) mg/dL POC Whole Bld Glucose 165 H 131 H (70 - 100) mg/dL Calcium (8.5-10.3) mg/dL Magnesium (1.7-2.8) mg/dL 11/08/20 11/08/20 11/07/20 Range/Units 05:44 05:44 20:31 WBC 20.2 H (4.8-10.8) x10^3/uL RBC 4.25 (4.20-5.40) 10^6/uL Hgb 13.6 (12.0-16.0) g/dL Hct 40.6 (37.0-47.0) % MCV 95.5 (81.0-99.0) fL MCH 32.0 H (27.0-31.0) pg MCHC 33.5 (32.0-36.0) g/dL RDW 14.2 (12.0-15.0) % Plt Count 211 (130-450) 10^3/uL MPV 9.8 (7.9-10.8) fL Neut # (Auto) 17.4 H (1.5-6.6) 10^3/uL Lymph # (Auto) 1.4 L (1.5-3.5) 10^3/uL [place] # (Auto) 1.3 H (0.0-1.0) 10^3/uL Eos # (Auto) 0.0 (0.0-0.7) 10^3/uL Baso # (Auto) 0.0 (0.0-0.1) 10^3/uL Absolute Nucleated RBC 0.00 x10^3/uL Nucleated RBC % 0.0 /100WBC PT (9.9-12.6) secs INR (0.8-1.2) Sodium 136 (135-145) mmol/L Potassium 4.4 (3.5-5.0) mmol/L Chloride 101 (101-111) mmol/L Carbon Dioxide 24 (21-32) mmol/L Anion Gap 11.0 (6-13) BUN 31 H (6-20) mg/dL Creatinine 1.1 H (0.4-1.0) mg/dL Estimated GFR (MDRD) 48 L (>89) Glucose 155 H (70-100) mg/dL POC Whole Bld Glucose 266 H (70 - 100) mg/dL Calcium 9.3 (8.5-10.3) mg/dL Magnesium 2.4 (1.7-2.8) mg/dL 11/07/20 11/07/20 Range/Units 16:43 11:51 WBC (4.8-10.8) x10^3/uL RBC (4.20-5.40) 10^6/uL Hgb (12.0-16.0) g/dL Hct (37.0-47.0) % MCV (81.0-99.0) fL MCH (27.0-31.0) pg MCHC (32.0-36.0) g/dL RDW (12.0-15.0) % Plt Count (130-450) 10^3/uL MPV (7.9-10.8) fL Neut # (Auto) (1.5-6.6) 10^3/uL Lymph # (Auto) (1.5-3.5) 10^3/uL [place] # (Auto) (0.0-1.0) 10^3/uL Eos # (Auto) (0.0-0.7) 10^3/uL Baso # (Auto) (0.0-0.1) 10^3/uL Absolute Nucleated RBC x10^3/uL Nucleated RBC % /100WBC PT (9.9-12.6) secs INR (0.8-1.2) Sodium (135-145) mmol/L Potassium (3.5-5.0) mmol/L Chloride (101-111) mmol/L Carbon Dioxide (21-32) mmol/L Anion Gap (6-13) BUN (6-20) mg/dL Creatinine (0.4-1.0) mg/dL Estimated GFR (MDRD) (>89) Glucose (70-100) mg/dL POC Whole Bld Glucose 237 H 247 H (70 - 100) mg/dL Calcium (8.5-10.3) mg/dL Magnesium (1.7-2.8) mg/dL ABX Reporting Has patient been on IV antibiotics over the past 48 hours?: Yes Assessment/Plan - Problem List (1) Atrial fibrillation with RVR Impression: Her heart rate has been difficult to control and she has been persistently tachycardic in the 120s. I suspect this is likely atrial flutter given it is so regular. This has been difficult to control likely due to her COPD exacerbation and the use of beta agonist. We did increase her metoprolol to 100 mg twice daily and trialed a dose of IV diltiazem yesterday without much improvement. Although she does not appear to be overtly symptomatic to the atrial flutter/fibrillation, I do not believe she is ready to go home with her heart rate persistently in the 120s. We discussed this and she is agreeable to staying overnight so that we can control her heart rate. We will continue her on metoprolol 100 mg twice daily and will add diltiazem 30 mg every 6 hours. We will give another dose of diltiazem 20 mg IV now. We will consider increasing her oral diltiazem or trying digoxin if she remains persistently tachycardic. We will change her standing duo nebs and albuterol as needed to long-acting beta agonist and Xopenex as needed. We will continue to monitor on telemetry. Check a TSH as well. (2) COPD exacerbation Impression: She is much improved from respiratory standpoint. He has no wheezing on exam and is moving air quite well. We will continue her on oral prednisone to complete 5 days of therapy. Given her tachycardia and her overall improvement, we will discontinue standing duo nebs and albuterol and place her on a long- acting beta agonist and inhaled corticosteroid and then will use Xopenex as needed. She will need an exercise desaturation test prior to discharge. (3) Fever Impression: She has been afebrile since she spiked a low-grade fever on the . Her chest x-ray did not reveal any obvious infiltrate and her urinalysis was unremarkable. Blood cultures have been negative to date. Her white count is elevated but this appears to have plateaued and I believe may be related to her steroids. We will keep her on ceftriaxone IV for the COPD exacerbation while she is hospitalized. We will recheck a CBC in the morning and I am hopeful that this will begin to trend in the right direction. (4) Leukocytosis Impression: Her white count appears to have plateaued at around 20,000. I suspect this may be related to her steroid use but given her fever from 2 days ago, we will keep her on ceftriaxone IV. We will observe her overnight and recheck a CBC. I would like to see her white count heading in the right direction before dis charge. (5) History of mechanical aortic valve replacement Impression: Echocardiogram revealed a well-functioning mechanical aortic valve. We will continue her on Coumadin. (6) Type 2 diabetes mellitus Impression: Her A1c was elevated at 6.9%. Blood glucose is improved after increasing the Lantus to 20 units in the morning. We did discuss therapy on discharge which can include Metformin as her blood glucose is likely acutely elevated due to the use of steroids. She prefers to hold off on any therapies at this time and would prefer to attempt to control her blood glucose with diet alone. She will follow up with her primary care provider. While she is hospitalized we will keep her on Lantus 20 units daily and sliding scale. Continue with a carb controlled diet. Qualifiers: Diabetes mellitus fdc insulin use: without fdc use Diabetes mellitus complication status: without complication Qualified Code(s): E11.9 - Type 2 diabetes mellitus without complications (7) Dysphagia Impression: This has been present for a few weeks. There is no evidence of aspiration on im aging. She has been tolerating a soft mechanical diet without obvious signs of aspiration. We will ask for swallow evaluation tomorrow. We did discuss endoscopy but she prefers to hold off on this for the time being and I am in agreement given her recent COPD exacerbation. (8) History of cancer of lower lobe bronchus or lung Impression: She is status post right lower lobectomy in 2007 for lung cancer. She had imaging performed last year which was concerning for a new 1 cm left lower lobe nodule. We will have her follow-up with her primary care provider for repeat CT. (9) Hypertension Impression: Her blood pressure has been elevated with systolic as high as 160's. We will continue metoprolol 100 mg twice daily and losartan. We have added diltiazem given her atrial fibrillation. If her blood pressure still remains elevated, we can consider increasing her losartan. Qualifiers: Hypertension type: essential hypertension Qualified Code(s): I10 - E ssential (primary) hypertension
[2020-11-08] MEDS: WARFARIN 5 MG TABLET PO SCH (13:59)
[2020-11-08] MEDS ORDERED: diltiaZEM CD 120 MG CAPSULE PO SCH (14:51)
[2020-11-08] MEDS: BUDESONIDE 0.5 MG/2 ML NEB INH SCH (18:18)
[2020-11-08] MEDS: FORMOTEROL FUMARATE NEB 20 MCG/2 ML INH SCH (18:18)
[2020-11-08] MEDS: ATORVASTATIN 40 MG TABLET PO SCH (21:19)
[2020-11-08] MEDS: LATANOPROST 0.005% OPHTH DROPS EACHEYE SCH (21:19)
[2020-11-09] MEDS: SODIUM CHLORIDE FLUSH 0.9% 10 ML SYRINGE IVP SCH ×2 (00:45→08:50)
[2020-11-09 05:21] LABS: BASOPHILS % (AUTO) 0.1 %; HCT - HEMATOCRIT 41.7 % (37.0-47.0); HGB - HEMOGLOBIN 13.6 g/dL (12.0-16.0); LYMPHOCYTES % (AUTO) 12.4 %; MEAN CORPUSCULAR HEMOGLOBIN 31.3 pg (27.0-31.0); MEAN CORPUSCULAR HGB CONC 32.6 g/dL (32.0-36.0); MEAN CORPUSCULAR VOLUME 96.1 fL (81.0-99.0); MEAN PLATELET VOLUME 9.9 fL (7.9-10.8); MONOCYTES # (AUTO) 1.4 10^3/uL (0.0-1.0); MONOCYTES % (AUTO) 8.5 %; NEUTROPHILS # (AUTO) 12.5 10^3/uL (1.5-6.6); NEUTROPHILS % (AUTO) 78.5 %; PLT - PLATELET COUNT 201 10^3/uL (130-450); RED BLOOD COUNT 4.34 10^6/uL (4.20-5.40); RED CELL DISTRIBUTION WIDTH 14.1 % (12.0-15.0); WHITE BLOOD COUNT 15.9 x10^3/uL (4.8-10.8)
[2020-11-09 05:31] LABS: CALCIUM 9.1 mg/dL (8.5-10.3); CREATININE 0.9 mg/dL (0.4-1.0); MAGNESIUM 2.5 mg/dL (1.7-2.8); POTASSIUM 4.2 mmol/L (3.5-5.0)
[2020-11-09 05:34] LABS: INR 3.8 (0.8-1.2); PT - PROTHROMBIN TIME 39.2 secs (9.9-12.6)
[2020-11-09] MEDS: BUDESONIDE 0.5 MG/2 ML NEB INH SCH (07:30)
[2020-11-09] MEDS: FORMOTEROL FUMARATE NEB 20 MCG/2 ML INH SCH (07:30)
[2020-11-09] MEDS: predniSONE 20 MG TABLET PO SCH (08:06)
[2020-11-09] MEDS: INSULIN ASPART 300 UNIT/3 ML PEN SUBQ SCH ×3 (08:10→12:05)
[2020-11-09] MEDS ORDERED: BENZONATATE 100 MG CAPSULE PO PRN (08:17)
[2020-11-09] MEDS: polyethylene glycoL 3350 17 GM PACKET PO SCH (08:40)
[2020-11-09] MEDS: METOPROLOL TARTRATE 50 MG TABLET PO SCH (08:49)
[2020-11-09] MEDS: LOSARTAN 50 MG TABLET PO SCH (08:50)
[2020-11-09] MEDS: INSULIN GLARGINE 300 UNIT/3 ML PEN SUBQ SCH (08:51)
[2020-11-09] MEDS ORDERED: diltiaZEM CD 180 MG CAPSULE PO SCH (09:00)
[2020-11-09] MEDS: cefTRIAXone 1 GM in SODIUM CHLORIDE 0.9% MINIBAG 100 ML IV SCH (09:00)
[2020-11-09] MEDS ORDERED: guaiFENesin 600 MG TABLET PO SCH (09:00)
[2020-11-09 11:56] VITALS: BP 123/76
[2020-11-09] MEDS: WARFARIN 5 MG TABLET PO SCH (12:06)
--- NOTE | 2020-11-09 12:28 | Discharge Plan ---
Discharge Plan Problem Reviewed?: Yes Disposition: Home, Self Care Condition: Stable Prescriptions: diltiaZEM CD [Cardizem Cd] 180 mg PO DAILY #30 cap Diet: Diabetic Activity Restrictions: Activity as Tolerated Instruction Topics: Metoprolol tablets, Diltiazem tablets, Diet Soft Dc Health Concerns: You were admitted to the hospital because of exacerbation of your COPD. This improved with antibiotics, breathing treatments, steroids. You completed your course of antibiotics and steroids while here in the hospital. Your heart rate has been difficult to control due to the atrial fibrillation. You are already on a blood thinner for the mechanical valve which she will continue. You will also continue your home metoprolol but we will add another medication called diltiazem which can also help control your heart rate. You do have some leg swelling and I did recommend furosemide or Lasix which is a water pill but you have declined this. I do recommend that you follow-up with your primary care provider to discuss this further in the future. You also have evidence of diabetes and I did recommend Metformin on discharge. You prefer to control your blood glucose with diet which is also another potential treatment option. I encourage you to follow-up with your primary care provider to discuss this further in the future. I do recommend checking your blood sugars a few times a day. You also have a lung nodule that was evident on the CT scan of your lungs before. I recommend following up with your primary care provider to discuss repeat imaging of this although I know you are not considering this as it would not change your plan or management of this nodule. Plan of Treatment: Please continue taking your home medications as previously prescribed. We did add diltiazem to help control your heart rate. Please follow-up with your primary care provider to discuss your diabetes, leg swelling, and the lung nodule. You will also need your INR closely followed as it has been a little bit elevated since you have been hospitalized. We did adjust your dose so please take your new dose of Coumadin. Please take 5 mg of Coumadin on Monday, Monday, , Monday. Please take 2.5 mg of Coumadin on Monday, Monday, Monday. Please have your INR checked this week. Care Goals: The goal is to treat your underlying COPD and to prevent further hospitalizations in the future. Assessment: The patient expressed understanding of the treatment plan. Additional Instructions or Follow Up instructions: Please follow-up with your primary care provider in 1 week. You should have your INR checked in a few days to ensure that it is stable. No Smoking: If you smoke, Please STOP! Call for help. Follow-up with: Benigno Domingo [Primary Care Provider] -
--- NOTE | 2020-11-09 13:27 | DISCHARGE SUMMARY ---
Discharge Summary Admit Date: 11/05/20 Discharge Date: 11/09/20 Discharging Provider: Rudolph Ortega Primary Care Provider: Benigno Domingo Code Status: Do Not Attempt Resuscitation Condition at Discharge: Stable Discharge Disposition: 01 Home, Self Care - DIAGNOSES Admission Diagnoses: Acute and chronic respiratory failure with hypoxia COPD exacerbation Type 2 diabetes mellitus Supratherapeutic INR Aortic valve replaced DNR Atrial fib/flutter Hypertension Discharge Diagnoses with Status of Each Condition: COPD exacerbation - resolved. Atrial fibrillation rapid ventricular response - improved. Fever - resolved. Leukocytosis - improved. History mechanical aortic valve replacement - stable. Type 2 diabetes mellitus - stable. Dysphagia - stable. History of cancer of lower lobe bronchus or lung - stable. Hypertension - stable. - HPI History of Present Illness: H&P per Dr. Merlos on 10/31/20: She is an 79-year-old female has had progressive COPD for the last few years. She started smoking in her teens and was only smoking 1 cigarette a week, and as she got older, had different relationships, gradually increased her smoking. By the time she was 38 she was smoking 1 pack/day and did that until the age of 58. She is not on home oxygen. 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 When he she transitioned to [facility] for life with Medicare primary. As such she had to start seeing Dr. Cooper in [place] until he retired. Then she switched to the physician that took over his practice and she just did not like her style. It was that physician that diagnosed her with "asthma" over a year ago. She then saw Dr. Benigno Domingo in [place]. Dr. Domingo tells her that she has emphysema not asthma. She has been with Dr. Domingo for about a year. In that year she feels like she is just getting worse. Over a year ago she realized that her dyspnea on exertion was starting to limit her to 20 feet. She started taking medications through her [place] physician for 6 months and did not get better. She then switched to Dr. Domingo and he switched her medications a bit. But she feels like she still not getting any better. Everything really took a turn for the worse when Covid happened. In October 2019 she was still bowling 2 times a week, getting out of the house, being physically active around her 20 acres. When she started having to stay in her home, have no physical activity she feels like everything with regards to dyspnea exertion, orthopnea and wheezing got worse. In July 2019 she fell down some stairs and use using a walker. But by October 2019 she did not need it anymore. She cooked her son corn beef and cabbage for [employer]. Her son did the potatoes and she was able to do everything else. She considers this a minor miracle since the last few months have been unbearable with regards to her ability to do anything. It takes her 2 days to do a load of laundry. It takes her forever to wash the dishes. Her neighbor now goes to the [employer] to do her grocery shopping for her and bring her groceries. Her son takes care of the property but she really cannot handle her housework anymore. Taking a bath is become very difficult. All because of dyspnea on exertion. This morning she woke up just struggling for air. As the day progressed she could not breathe. She knew that she had to wash the dishes because her neighbor was coming over to drop off groceries. The neighbor did that, and by 2 PM the groceries were still there. She denies fever, chills, sore throat, runny nose, eustachian tube dysfunction. She does not feel like anything happened, that there was any antecedent illness, just that today was a progression of the last year. She was 90% saturated on room air in the emergency room. Required 2 L nasal cannula to maintain her O2 sat stable. She was tripoding, struggling to breathe with diffuse wheezing. She received antibiotics, steroids, nebulizers. She was feeling better but still struggling to breathe. Chest x-ray has postsurgical changes redemonstrated in the right lung base with linear right basilar opacities likely related to scarring. No acute infiltrate or consolidation. CMP was normal. Initial troponin was 23. Troponin #2 was 21. BNP was 280. Random glucose 139. White cell count mildly elevated 11.4 without a left shift. Venous blood gas was a pH of 7.37, PCO2 43, PO2 69. Covid negative. INR is 4.4. The emergency room provider has asked us to place her in inpatient status. She thinks that she will be here greater than 2 midnights to stabilize her. - CONSULTS | PROCEDURES Consultations: ST Procedures: Echocardiogram revealed mild concentric LVH. Ejection fraction is 60 to 65%. The right ventricle is normal in size and function. Mild tricuspid regur gitation. Mildly abnormal right heart pressures. RVSP at rest is 49 mmHg. Normally functioning mechanical valve in the aortic position with a peak velocity of less than 3 m/second without evidence of insufficiency. The mitral valve is mildly sclerotic. There is a mild mixed etiology mitral regurgitation. - HOSPITAL COURSE Hospital Course: She was admitted to the floor for COPD exacerbation. She was treated with Solu- Medrol 60 mg IV twice daily initially along with ceftriaxone IV. She started on duo nebs [id number] with albuterol as needed. She initially required 2 L of oxygen via nasal cannula and this was weaned over the next 48 hours. Initial chest x-ray was unremarkable and did not reveal any obvious infiltrate. Her respiratory status improved over the next 24 hours and she was transitioned to oral prednisone 40 mg daily. She did spike a low-grade fever on the second hospital day with a temperature of 38 C. Blood cultures were checked and these were negative to date. Her urinalysis was unremarkable. Her respiratory PCR p alfredito was also unremarkable. She did not spike any further fevers during his hospitalization. Her white count did increase to 20,000 but this was felt related to steroids and on day of discharge, it has improved to less than 16,000. She was also found to have atrial fibrillation/atrial flutter during this hospitalization. Her heart rate had been difficult to control. We gave her multiple doses of IV diltiazem and start her on oral Cardizem 30 mg every 6 hours. This did improve her heart rate from the 120s to the low 100s and high 90s. She was transitioned to long-acting oral Cardizem 180 mg daily in addition to her metoprolol 100 mg twice a day. On day of discharge, her heart rate is stable in the low 100s. She really prefers to be discharged today and I believe this is reasonable as her heart rate overall is improved and has been stable this morning. She was also seen by speech therapy given she had been complaining of dysphagia. Mechanical soft diet is recommended and she is agreeable to this. We did discuss endoscopy but I was hesitant to do this during his hospitalization given her recent COPD exacerbation. She was also in agreement with this. I did ask her to follow-up with her primary care provider regarding this. Her INR was also slightly supratherapeutic on admission. I did ask her to decrease her Coumadin dose to 27.5 mg a week rather than 30 mg a week. She tells me she is scheduled to have her INR checked in a few days. Her blood glucose was also elevated during this hospitalization and she was treated with Lantus 20 units daily and sliding scale. This was likely exacerbated by the use of steroids. Her A1c was elevated at nearly 7%. We discussed the use of Metformin on discharge but she prefers to hold off on initiating any other medications at this time. I did ask her to check her blood sugars at home but she states that she likely will not do so given her age. The patient has made it quite clear that she is a DNR and does not want any heroic measures. She has also made it quite clear that at this point in her life, she prefers to hold off on extensive work-ups and would only like to take medications are absolutely essential. We discussed furosemide given her lower extremity edema but she also declined this. As mentioned above, she also declined Metformin for her diabetes. We discussed obtaining a repeat CT in the future given she had a lung nodule on prior imaging and this was recommended by her material stress tester previously. She stated she will follow up with her primary care provider but will likely not obtain further imaging as even if it is malignancy, she would not want biopsy or treatment for this. Her goal at this point in her life is to optimize her quality of life. I did recommend an outpatient palliative consult and she is agreeable to this. - ALLERGIES Allergies/Adverse Reactions: Allergies Allergy/AdvReac Type Severity Reaction Status Date / Time Penicillins Allergy Hives Verified 11/05/20 17:43 - MEDICATIONS Home Medications: Ambulatory Orders Medication Instructions Recorded Confirmed Albuterol Sulfate [Proair Hfa 1 - 2 puffs INH Q4H PRN 11/05/20 11/05/20 Inhaler] Fluticasone/Salmeterol [Advair Hfa 1 puffs INH BID 11/05/20 11/06/20 230-21 Mcg Inhaler] Metoprolol Tartrate [Lopressor] 100 mg PO BID 11/05/20 11/06/20 Tiotropium Br/Olodaterol HCl 2 puffs INH BID 11/05/20 11/06/20 [Stiolto Respimat Inhal [place]] Atorvastatin Calcium 40 mg PO QPM 11/06/20 11/06/20 Latanoprost 0.005% Ophth Drops 1 drops EACHEYE QPM 11/06/20 11/06/20 [Xalatan Ophth Drops] Losartan Potassium 25 mg PO DAILY 11/06/20 11/06/20 Warfarin [Coumadin] 2.5 mg PO MOWEFR #0 11/09/20 11/06/20 Warfarin [Coumadin] 5 mg PO SUTUTHSA #0 11/09/20 11/06/20 diltiaZEM CD [Cardizem Cd] 180 mg PO DAILY #30 cap 11/09/20 - PHYSICAL EXAM AT DISCHARGE General Appearance: positive: No acute distress, Alert Eyes Bilateral: positive: Normal inspection, No lid inflammation ENT: positive: ENT inspection nml Neck: positive: Nml inspection Respiratory: positive: No respiratory distress. negative: Wheezes, Rales Cardiovascular: positive: Irregularly irregular, Tachycardia, Systolic murmur (Mechanical click.) Abdomen: positive: Non-tender, No distention, Tenderness Skin: positive: Warm, Dry Extremities: positive: Pedal edema (+1 pitting edema.) Neurologic/Psychiatric: positive: Motor nml. negative: Disoriented to person, Disoriented to place, Disoriented to time - LABS Result Diagrams: 11/09/20 05:12 11/09/20 05:12 - DIAGNOSTIC IMAGING Diagnostic Imaging Results: Final report reviewed - FOLLOW UP Follow Up: She was asked to follow-up with her primary care provider in 1 week and to have her INR checked in a few days which she was already planning to do so. - TIME SPENT Time Spent in Discharge (Minutes): 34
[2020-11-10] MEDS ORDERED: WARFARIN 2.5 MG TABLET PO SCH (14:00)
== END 2020-11-09 16:00 | disposition home or self-care (01) | DRG 189 ==
LOC: EDUNIT# → ED 17:11 → MS2 18:27
PROVIDERS: ADMIT Internal Medicine; ATTEND Internal Medicine
DX: J96.21 Acute and chronic respiratory failure with hypoxia (principal); J96.01 Acute respiratory failure with hypoxia; J44.1 Chronic obstructive pulmonary disease with (acute) exacerbation; I48.92 Unspecified atrial flutter; I48.20 Chronic atrial fibrillation, unspecified; R00.0 Tachycardia, unspecified; I45.10 Unspecified right bundle-branch block; Z20.822 Contact with and (suspected) exposure to COVID-19; E11.9 Type 2 diabetes mellitus without complications; R79.1 Abnormal coagulation profile; I10 Essential (primary) hypertension; J30.2 Other seasonal allergic rhinitis; R91.1 Solitary pulmonary nodule; I08.1 Rheumatic disorders of both mitral and tricuspid valves; Z95.1 Presence of aortocoronary bypass graft; Z90.2 Acquired absence of lung [part of]; Z85.118 Personal history of other malignant neoplasm of bronchus and lung; Z87.891 Personal history of nicotine dependence; Z95.2 Presence of prosthetic heart valve; Z79.01 Long term (current) use of anticoagulants; Z66 Do not resuscitate; R13.10 Dysphagia, unspecified; R39.15 Urgency of urination; R50.9 Fever, unspecified; D72.829 Elevated white blood cell count, unspecified
CPT/HCPCS: 36415; 71045; 80048; 80053; 81001; 82803; 83036; 83690; 83735; 83880; 84443; 84484; 85025; 85610; 87040; 87631; 92610; 93005; 93306; 94640; 94761; 96374; 99284; 99285; A9270; J1815; J7512; J7626; 0202U; 87086

== ENCOUNTER 2020-11-24 | Outpatient (CLI) | payer MEDICARE, OTHER | END 2020-11-24 23:59 | disposition critical access hospital (66) | CPT/HCPCS: A0425; A0429 ==

== ENCOUNTER 2020-11-24 15:19 | Emergency (ER) | payer MEDICARE, OTHER ==
--- NOTE | 2020-11-24 15:45 | ED Physician Documentation ---
History of Present Illness - Stated complaint Stated Complaint: SOA - Chief complaint Chief Complaint: Resp - History obtained from History obtained from: Patient - Additonal information Additional information: Patient comes emergency department chief complaint of "I cannot breathe". She states that this has been going on for months and that she has a history of COPD with emphysema. Patient states that she was seen here a few weeks ago for an exacerbation of her dyspnea/COPD and that since then, she has only been able to whisper. She states that just feels like too much work to talk. The patient is not on supplemental oxygen at home. She uses albuterol inhaler when needed. She states that her dyspnea seems to wax and wane to some degree, but that when she has an episode of shortness of breath, she gets panicky. This happened today and this is what resulted in the patient calling 911. Patient states she has never seen her primary care physician about these ongoing symptoms, due to the fact that it is difficult for her to walk to the car from her home and to the clinic from the car. Patient has a walker but no wheelchair. She states her son lives with her and is on hand to take her to run errands and go to appointments. No other complaints at this time. No chest pain or new cough. No fever or chills. No abdominal pain, nausea, or vomiting. Patient has chronic lower extremity edema which is unchanged from her usual. Review of Systems Ten Systems: 10 systems reviewed and negative Constitutional: reports: Reviewed and negative Eyes: reports: Reviewed and negative Ears: reports: Reviewed and negative Nose: reports: Reviewed and negative Throat: reports: Reviewed and negative Cardiac: reports: Reviewed and negative Respiratory: reports: Dyspnea GI: reports: Reviewed and negative : reports: Reviewed and negative Skin: reports: Reviewed and negative Musculoskeletal: reports: Reviewed and negative Neurologic: reports: Reviewed and negative Psychiatric: reports: Reviewed and negative Endocrine: reports: Reviewed and negative Immunocompromised: reports: Reviewed and negative PD PAST MEDICAL HISTORY - Past Medical History Cardiovascular: Hypertension, High cholesterol, Valve disorder Respiratory: COPD, Other (lung cancer w RLL resection @ [facility]) Neuro: None Endocrine/Autoimmune: Type 2 diabetes (but she really feels she doesn't have this) GI: None PRODUCT SPECIALIST: Other () : Kidney stones HEENT: None Psych: None Musculoskeletal: Osteoarthritis Derm: None - Past Surgical History Past Surgical History: Yes General: Appendectomy /PRODUCT SPECIALIST: Tubal ligation, Other Cardiovascular: Valve replacement - Present Medications Home Medications: Ambulatory Orders Medication Instructions Recorded Confirmed Albuterol Sulfate [Proair Hfa 1 - 2 puffs INH Q4H PRN 11/05/20 11/05/20 Inhaler] Fluticasone/Salmeterol [Advair Hfa 1 puffs INH BID 11/05/20 11/06/20 230-21 Mcg Inhaler] Metoprolol Tartrate [Lopressor] 100 mg PO BID 11/05/20 11/06/20 Tiotropium Br/Olodaterol HCl 2 puffs INH BID 11/05/20 11/06/20 [Stiolto Respimat Inhal [place]] Atorvastatin Calcium 40 mg PO QPM 11/06/20 11/06/20 Latanoprost 0.005% Ophth Drops 1 drops EACHEYE QPM 11/06/20 11/06/20 [Xalatan Ophth Drops] Losartan Potassium 25 mg PO DAILY 11/06/20 11/06/20 Warfarin [Coumadin] 2.5 mg PO MOWEFR #0 11/09/20 11/06/20 Warfarin [Coumadin] 5 mg PO SUTUTHSA #0 11/09/20 11/06/20 diltiaZEM CD [Cardizem Cd] 180 mg PO DAILY #30 cap 11/09/20 Albuterol 2.5 mg INH Q4H PRN #60 ml 11/24/20 predniSONE [Deltasone] 60 mg PO DAILY 5 Days #15 tablet 11/24/20 - Allergies Allergies/Adverse Reactions: Allergies Allergy/AdvReac Type Severity Reaction Status Date / Time Penicillins Allergy Hives Verified 11/24/20 15:26 - Social History Does the pt smoke?: No Smoking Status: Former smoker Does the pt drink ETOH?: No Does the pt have substance abuse?: No - Immunizations Immunizations are current?: Yes - POLST Patient has POLST: No POLST Status: DNR PD ED PE NORMAL - Vitals Vital signs reviewed: Yes - General General: Alert and oriented X 3, No acute distress - HEENT HEENT: Atraumatic, PERRL, EOMI, Moist mucous membranes - Neck Neck: Supple, no meningeal sign - Cardiac Cardiac: RRR, No murmur, Strong equal pulses - Respiratory Respiratory: No respiratory distress, Clear bilaterally - Abdomen Abdomen: Soft, Non tender, Non distended - Derm Derm: Normal color, Warm and dry, No rash - Extremities Extremities: No deformity, No calf tenderness / cord, Other (2+ pitting edema bilateral lower extremities, left mildly greater than right.) - Neuro Neuro: Alert and oriented X 3, rn relief charge 2-12 intact, Normal speech - Psych Psych: Normal mood, Normal affect Results - Vitals Vitals: Vital Signs - 24 hr 11/24/20 11/24/20 11/24/20 15:26 17:10 17:30 Temperature 36.2 C L Heart Rate 88 93 93 Respiratory 32 H 23 25 H Rate Blood Pressure 163/122 H 192/81 H O2 Saturation 94 94 11/24/20 18:01 Temperature 36.7 C Heart Rate 93 Respiratory 20 Rate Blood Pressure 192/81 H O2 Saturation 94 Oxygen O2 Source Room air - Labs Labs: Laboratory Tests 11/24/20 11/24/20 11/24/20 15:58 15:58 15:58 WBC 10.9 H RBC 4.87 Hgb 15.2 Hct 48.8 H MCV 100.2 H MCH 31.2 H MCHC 31.1 L RDW 14.0 Plt Count 248 MPV 9.9 Neut # (Auto) 8.5 H Lymph # (Auto) 1.4 L Evangeline # (Auto) 0.8 Eos # (Auto) 0.0 Baso # (Auto) 0.1 Absolute Nucleated RBC 0.00 Nucleated RBC % 0.0 Sodium 133 L Potassium 4.5 Chloride 99 L Carbon Dioxide 23 Anion Gap 11.0 BUN 26 H Creatinine 1.1 H Estimated GFR (MDRD) 48 L Glucose 139 H Calcium 9.3 Total Bilirubin 1.2 H AST 43 H ALT 33 Alkaline Phosphatase 106 B-Natriuretic Peptide 313 H Total Protein 6.9 Albumin 3.6 Globulin 3.3 Albumin/Globulin Ratio 1.1 - Rads (name of study) CXR Radiology: Final report received, EMP read indepedently, See rad report PD MEDICAL DECISION MAKING - ED course Complexity details: reviewed results, re-evaluated patient, considered differential, d/w patient ED course: Patient was actually fairly well-appearing, and was in no distress upon my interview. She seemed to have very chronic symptoms for which she had not followed up anytime recently, despite her concerns. The patient was worked up with a chest x-ray and laboratory studies, but I felt that most likely she needed more than anything was resources to help her be able to get to her primary care physician and get more home support set up. Work-up was unremarkable. Pt was given resources for medical transport assistance. I have prescribed a nebulizer machine at the pt's request, and a short course of steroids. We have discussed the usual indications for return. Departure - Departure Disposition: 01 Home, Self Care Clinical Impression: COPD (chronic obstructive pulmonary disease) Qualifiers: COPD type: unspecified COPD Qualified Code(s): J44.9 - Chronic obstructive pulmonary disease, unspecified Dyspnea Qualifiers: Dyspnea type: shortness of breath Qualified Code(s): R06.02 - Shortness of breath Condition: Stable Instructions: ED COPD Flare Prescriptions: Albuterol 2.5 mg INH Q4H PRN #60 ml PRN Reason: Wheezing predniSONE [Deltasone] 60 mg PO DAILY 5 Days #15 tablet Comments: Your labs and x-ray do not show any acute findings. It is very important that you follow-up with your primary care physician to get established with some outp atient resources and for further outpatient work-up beyond what we can do in the emergency department. We have given you an information sheet with information on medical transportation to assist patient such as yourself in getting to appointments and back again. Please continue to use your inhalers at home. You have also been given a prescription for a nebulizer machine. Discharge Date/Time: 11/24/20 18:18
[2020-11-24 16:02] LABS: BASOPHILS # (AUTO) 0.1 10^3/uL (0.0-0.1); BASOPHILS % (AUTO) 0.5 %; EOSINOPHILS % (AUTO) 0.4 %; HCT - HEMATOCRIT 48.8 % (37.0-47.0); HGB - HEMOGLOBIN 15.2 g/dL (12.0-16.0); LYMPHOCYTES # (AUTO) 1.4 10^3/uL (1.5-3.5); LYMPHOCYTES % (AUTO) 13.1 %; MEAN CORPUSCULAR HEMOGLOBIN 31.2 pg (27.0-31.0); MEAN CORPUSCULAR HGB CONC 31.1 g/dL (32.0-36.0); MEAN CORPUSCULAR VOLUME 100.2 fL (81.0-99.0); MEAN PLATELET VOLUME 9.9 fL (7.9-10.8); MONOCYTES # (AUTO) 0.8 10^3/uL (0.0-1.0); MONOCYTES % (AUTO) 7.5 %; NEUTROPHILS # (AUTO) 8.5 10^3/uL (1.5-6.6); PLT - PLATELET COUNT 248 10^3/uL (130-450); RED BLOOD COUNT 4.87 10^6/uL (4.20-5.40); WHITE BLOOD COUNT 10.9 x10^3/uL (4.8-10.8)
--- NOTE | 2020-11-24 16:13 | XRAY Report ---
PROCEDURE: Chest 1 View X-Ray INDICATIONS: chest pain TECHNIQUE: One view of the chest was acquired. COMPARISON: 11/05/2020 FINDINGS: Slightly rotated patient. Surgical changes and devices: Median sternotomy changes and overlying monitoring wires are present.. Lungs and pleura: The lung volumes are low. There is probable chronic right and new to slightly wors e left pleural effusion. There is mild alveolar opacity at the left lung base which is also accentuat ed versus new. Mediastinum: Mediastinal contours appear normal. Heart size is obscured, likely enlarged. Bones and chest wall: No suspicious bony lesions. Overlying soft tissues appear unremarkable. IMPRESSION: 1. Worsened, and/or new left pleural effusion and associated left base alveolar opacity. Differential includes pneumonia versus pulmonary edema. 2. Chronic blunting, likely effusion on the right appears stable. 3. Low lung volumes accentuating probable cardiomegaly. Reviewed by: Nida Holland MD on 11/24/2020 3:11 PM TRAY Approved by: Nida Holland MD on 11/24/2020 3:11 PM TRAY Station ID: [id number]
[2020-11-24 16:17] LABS: ALBUMIN 3.6 g/dL (3.2-5.5); ALBUMIN/GLOBULIN RATIO 1.1 (1.0-2.2); BILIRUBIN,TOTAL 1.2 mg/dL (0.2-1.0); CALCIUM 9.3 mg/dL (8.5-10.3); CREATININE 1.1 mg/dL (0.4-1.0); POTASSIUM 4.5 mmol/L (3.5-5.0); TOTAL PROTEIN 6.9 g/dL (6.7-8.2)
[2020-11-24] MEDS ORDERED: IPRATROPIUM/ALBUTEROL 3 ML NEB INH STA (16:39)
[2020-11-24] MEDS ORDERED: DEXAMETHASONE 10 MG/ML VIAL IV STA (16:39)
[2020-11-24 17:37] VITALS: BP 192/81
--- OUTSIDE RECORDS SUMMARY | 2020-11-25 03:24 | EXTERNAL MEDICAL SUMMARY RPT | Continuity of Care Document ---
:1940 Demographics Phone Unavailable Preferred Language Unknown Marital Status Unknown Christian Affiliation Unknown Race Unknown Ethnic Group Unknown Author Organization [facility] Address [address] [id number] Phone Social History date description facility [id number]
== END 2020-11-24 18:18 | disposition home or self-care (01) ==
LOC: EDUNIT# → ED 15:19 → SUPCPDRO 15:19 → ED 18:18
DX: J43.9 Emphysema, unspecified (principal); Z85.118 Personal history of other malignant neoplasm of bronchus and lung; Z87.891 Personal history of nicotine dependence; I10 Essential (primary) hypertension; Z95.2 Presence of prosthetic heart valve; Z79.01 Long term (current) use of anticoagulants; E11.9 Type 2 diabetes mellitus without complications
CPT/HCPCS: 36415; 80053; 83880; 85025; 94640; 96374; 99284

== ENCOUNTER 2020-12-09 12:15 | Outpatient (CLI) | payer MEDICARE, OTHER | END 2020-12-09 12:16 | disposition short-term general hospital (02) | LOC: EMS 12:15 | DX: R53.1 Weakness (principal); R05 Cough; R06.00 Dyspnea, unspecified | CPT/HCPCS: A0425; A0427 ==